=== PATIENT | female | born 1970 | race Two or more races ===

== ENCOUNTER 2018-07-23 17:53 | Inpatient (IN) | payer MEDICAID ==
[2018-07-23 19:12] LABS: % BASOPHILS 0.8 % (0.0-2.0); % LYMPHOCYTES 36.3 % (20.0-50.0); % MONOCYTES 3.9 % (2.0-10.0); HEMATOCRIT 41.9 % (41.0-60); LYMPHOCYTE ABSOLUTE 1.7 Th/cmm (1.5-3.0); MEAN CELL VOLUME 89.7 fl (81-100); MEAN CORPUSCULAR HEMOGLOBIN 30.1 pg (27.0-31.0); MEAN CORPUSCULAR HGB CONC 33.5 pg (28.0-36.0); MEAN PLATELET VOLUME 8.1 fl; MONOCYTE ABSOLUTE 0.2 Th/cmm (0.3-1.0); NEUTROPHILE ABSOLUTE 2.7 Th/cmm (1.8-8.0); PLATELET COUNT 138 Th/cmm (150-400); RED BLOOD COUNT 4.67 Mil/cmm (3.80-5.10); RED CELL DISTRIBUTION WIDTH 12.1 % (11.5-20.0); WHITE BLOOD COUNT 4.6 Th/cmm (4.8-10.8)
[2018-07-23 19:24] LABS: INR 1.06 (0.5-1.4)
[2018-07-23 19:29] LABS: TROP I 0.01 ng/mL (0.01-0.05)
[2018-07-23 19:32] LABS: ALB/GLOB RATIO 1.3 (1.0-1.8); ALKALINE PHOSPHATASE 125 U/L (34-104); ANION GAP 12.8 (7.0-16.0); BILIRUBIN,TOTAL 0.5 mg/dL (0.3-1.0); BUN - UREA NITROGEN 20 mg/dL (7-25); CALCIUM SERUM 9.7 mg/dL (8.6-10.3); CARBON DIOXIDE 27.2 mEq/L (21.0-31.0); CHLORIDE 103 mEq/L (98-107); CREATININE - SERUM 0.5 mg/dL (0.6-1.2); CREATININE KINASE 22 U/L (30-223); GFR AFRICAN-AMERICAN > 60.0 ml/min (>90); GFR NON AFRICAN-AMERICAN > 60.0 ml/min; GLUCOSE 95 mg/dL (70-105); SGOT 38 U/L (13-39); SGPT/ALT 40 U/L (7-52); SODIUM SERUM 139 mEq/L (136-145)
--- NOTE | 2018-07-23 21:59 | ED Physician Chart ---
ED Chief Complaint/HPI - Patient Information Date Seen:: 07/23/18 Time Seen:: 18:15 Chief Complaint:: G-Tube Dysfunction History of Present Illness:: onset x one day of G-Tube dysfunction; no report of LOC, ALOC, AMS, H/As, S/T, neck pain, cough, C/P, SOB, Abd. Pain, A/N/V/D/C, fever, chills, or urinary s/s Allergies:: Allergies Allergy/AdvReac Type Severity Reaction Status Date / Time No Known Allergies Allergy Verified 11/16/16 09:01 Vitals:: Vital Signs - 8 hr 07/23/18 07/23/18 18:14 21:51 Temp 97.3 F 97.0 F HR 75 82 RR 19 19 BP 106/45 127/55 O2 Sat % 96 98 Historian:: Patient, EMS Review:: Nurse's Note Reviewed, Old Chart Reviewed, EMS run form Reviewed ED Review of Systems - Review of Systems General/Constitutional: No fever, No chills, No weight loss, Weakness, No diaphoresis, No edema, No loss of appetite Skin: No skin lesions, No rash, No bruising Head: No headache, No light-headedness Eyes: No loss of vision, No pain, No diplopia ENT: No earache, No nasal drainage, No sore throat, No tinnitus Neck: No neck pain, No swelling, No thyromegaly, No stiffness, No mass noted Cardio Vascular: No chest pain, No palpitations, No PND, No orthopnea, No edema Pulmonary: No SOB, No cough, No sputum, No wheezing GI: No nausea, No vomiting, No diarrhea, No pain, No melena, No hematochezia, No constipation, No hematemesis G/U: No dysuria, No frequency, No hematuria, No nacturia Smudger: No vaginal discharge, No abnormal vaginal bleed, No contraction Musculoskeletal: No bone or joint pain, No back pain, No muscle pain Endocrine: No polyuria, No polydipsia Psychiatric: Prior psych history, No depression, Anxiety, No suicidal ideation, No homicidal ideation, No auditory hallucination, No visual hallucination Hematopoietic: No bruising, No lymphadenopathy Allergic/Immuno: No urticaria, No angioedema Neurological: No syncope, No focal symptoms, Weakness, No paresthesia, No headache, No seizure, No dizziness, Confusion, No vertigo ED Past Medical History - Past Medical History Obtainable: Yes Past Medical History: PUD/GERD, Seizures, Arthritis, Dementia, Other (Autism; Retts Syndrome) Family History: HTN Social History: Non Smoker, No Alcohol, No Drug Use, Single, Care Facility Surgical History: PEG/GTube Psychiatricy History: Schizophrenia, Bipolar, Dementia Medication: Reviewed Family Medical History - Family Member Mother History Unknown: Yes Ethnicity: Unknown Living Status: Unknown Hx Family Cancer: No ED Physical Exam - Physical Examination General/Constitutional: Awake, Well-developed, well-nourished, Alert, No distress, GCS 15, Non-toxic appearing, Ambulatory Head: Atraumatic Eyes: Lids, conjuctiva normal, PERRL, EOMI Skin: Nl inspection, No rash, No skin lesions, No ecchymosis, Well hydrated, No lymphadenopathy ENMT: External ears, nose nl, TM canals nl, Nasal exam nl, Lips, teeth, gums nl , Oropharynx nl, Tonsils nl Neck: Nontender, Full ROM w/o pain, No JVD, No nuchal rigidity, No bruit, No mass, No stridor Respiratory: Nl effort/Exclusion, Clear to Auscultation, No Wheeze/Rhonchi/Rales Cardio Vascular: RRR, No murmur, gallop, rubs, NL S1 S2, Carotid/Femoral/Distal pulses equal bilaterally GI: No tenderness/rebounding/guarding, No organomegaly, No hernia, Normal BS's, Nondistended, No mass/bruits, No McBurney tenderness, Rectum exam nl Other GI comments:: no pulsatile masses; + G-Tube Dysfunction : No CVA tenderness Extremities: No tenderness or effusion, Full ROM, normal strength in all extremities, No edema, Normal digits & nails Neuro/Psych: Alert/oriented, DTR's symmetric, Normal sensory exam, Normal motor strength, Judgement/insight normal, Mood normal, Normal gait, No focal deficits Misc: Normal back, No paraspinal tenderness ED Labs/Radiology/EKG Results - Lab Results Results: Laboratory Tests 07/23/18 07/23/18 07/23/18 18:52 18:52 18:52 WBC 4.6 L RBC 4.67 Hgb 14.0 Hct 41.9 MCV 89.7 MCH 30.1 MCHC Differential 33.5 RDW 12.1 Plt Count 138 L MPV 8.1 Neutrophils % 58.0 Lymphocytes % 36.3 Monocytes % 3.9 Eosinophils % 1.0 Basophils % 0.8 PT 11.0 INR 1.06 PTT (Actin FS) 30.3 Sodium 139 Potassium 4.0 Chloride 103 Carbon Dioxide 27.2 Anion Gap 12.8 BUN 20 Creatinine 0.5 L Est GFR ( Amer) > 60.0 Est GFR (Non-Af Amer) > 60.0 BUN/Creatinine Ratio 40.0 Glucose 95 Whole Bld Lactic Acid Calcium 9.7 Total Bilirubin 0.5 AST 38 ALT 40 Alkaline Phosphatase 125 H Creatine Kinase 22 L Troponin I Total Protein 7.0 Albumin 4.0 Globulin 3.0 Albumin/Globulin Ratio 1.3 07/23/18 18:52 WBC RBC Hgb Hct MCV MCH MCHC Differential RDW Plt Count MPV Neutrophils % Lymphocytes % Monocytes % Eosinophils % Basophils % PT INR PTT (Actin FS) Sodium Potassium Chloride Carbon Dioxide Anion Gap BUN Creatinine Est GFR ( Amer) Est GFR (Non-Af Amer) BUN/Creatinine Ratio Glucose Whole Bld Lactic Acid 1.30 Calcium Total Bilirubin AST ALT Alkaline Phosphatase Creatine Kinase Troponin I 0.01 Total Protein Albumin Globulin Albumin/Globulin Ratio Comments:: Reviewed - Radiology Results Comments:: NAD - EKG Interpretations EKG Time:: 19:18 Rate & Rhythm: 79; NSR Comments:: RAD; non-specific st-t changes ED Septic Shock - . Is Septic Shock (SBP<90, OR Lactate>4 mmol\L) present?: No - <6hrs of presentation: Vital Signs: Vital Signs - 8 hr 07/23/18 07/23/18 18:14 21:51 Temp 97.3 F 97.0 F HR 75 82 RR 19 19 BP 106/45 127/55 O2 Sat % 96 98 ED Reassessment (Disposition) - Reassessment Reassessment Condition:: Improved - Diagnosis Diagnosis:: G-Tube Dysfunction; Leukopenia; UTI; Sepsis - Aftercare/Follow up Instructions Aftercare/Follow-Up Instructions:: Counseled pt regarding lab results/diagnosis & need follow up, Counseled pt & family regarding lab results/diagnosis & need follow up - Patient Disposition Discharge/Transfer:: Acute Care w/in this hosp Accepting Physician:: Dr. Paredes Time Called:: 1999 Time Responded:: 20:00 Admitted to:: Med/Surg Spoke to:: Dr. Paredes Admitting Medical Physician:: Dr. Paredes Condition at Disposition:: Stable, Improved
[2018-07-23 22:04] LABS: URINE SOURCE MIDSTREAM
[2018-07-23 22:15] LABS: URINE BILIRUBIN NEGATIVE (NEGATIVE); URINE BLOOD NEGATIVE (NEGATIVE); URINE GLUCOSE (UA) NEGATIVE (NEGATIVE); URINE KETONE 15 mg/dL (NEGATIVE); URINE LEUKOCYTE ESTERASE SMALL (NEGATIVE); URINE MICROSCOPIC INDICATED? YES; URINE NITRATE POSITIVE (NEGATIVE); URINE PH 6.5 (4.6 - 8.0); URINE PROTEIN TRACE mg/dL (NEGATIVE)
[2018-07-23 22:16] LABS: URINE CLARITY HAZY (CLEAR); URINE COLOR YELLOW
[2018-07-23 22:20] LABS: URINE RBC 0-2 /hpf (0-5)
[2018-07-23 22:21] LABS: URINE BACTERIA MANY /hpf (NONE SEEN); URINE EPITHELIAL CELLS MODERATE /lpf (FEW)
[2018-07-23] MEDS ORDERED: cefTRIAXone 1 GM in Sodium Chloride 0.9% 50 ML IV ONE (22:28)
[2018-07-23] MEDS ORDERED: Albuterol Nebulizer 2.5mg/3mL HHN PRN (23:31)
[2018-07-24 04:49] VITALS: BP 109/74
[2018-07-24] MEDS: D5-0.9%NS 1,000 ML IV SCH ×2 (05:05→13:27)
[2018-07-24] MEDS: Lactulose 10 Gm/15 mL 30mL UDC GT SCH ×2 (08:26→11:26)
[2018-07-24] MEDS: Pantoprazole 40 mg/Packet GT SCH ×2 (08:26→11:26)
[2018-07-24] MEDS: Levetiracetam 500 mg/5mL 5mL UDSyr *for ORAL USE ONLY PO SCH ×3 (08:27→16:53)
[2018-07-24] MEDS ORDERED: Non-Formulary Item 1 EA (Levetiracetam [Keppra] 750 MG) GT SCH (09:00)
--- NOTE | 2018-07-24 10:07 | Diagnostic Imaging Report ---
Portable chest x-ray History: Pain Allowing for portable technique the heart size is normal. No focal pulmonary parenchymal processes. No hilar or mediastinal abnormalities. Impression: No acute abnormalities.
--- NOTE | 2018-07-24 11:08 | Diagnostic Imaging Report ---
CHEST X-RAY: AP view INDICATION: NG tube placement COMPARISON: Chest x-ray 07/23/2018 FINDINGS: NG tube is in place with tip in the distal stomach. Nonspecific gas-filled loops of bowel are noted. Bibasal atelectasis is noted. IMPRESSION: NG tube with tip in the distal stomach.
--- NOTE | 2018-07-24 15:27 | History & Physical ---
ADMIT DATE: 07/23/2018 INTERNAL MEDICINE HISTORY AND PHYSICAL CHIEF COMPLAINT: Malfunctioning G-tube, _unable to take meds, failed re insertment___. HISTORY OF PRESENT ILLNESS: This is a 47-year-old female with history of Rett syndrome, seizure, dysphagia, DJD, generalized contractures, G-tube secondary to dysphagia, admitted from nursing facility secondary to G-tube pulling out ____ and closed spontaneously. The patient was brought to the ER. The patient was also noted to be dehydrated with urinary tract infection and admitted for further management. PAST MEDICAL HISTORY: As mentioned in history of present illness. PAST SURGICAL HISTORY: Status post G-tube. MEDICATIONS: Calcium, Tylenol, Biotin, calcitonin, vitamin D3, Flaxseed, multivitamins, Keppra, Tylenol, baclofen, magnesium, gemfibrozil, lactulose, and sucralfate. ALLERGIES: No known drug allergies. SOCIAL HISTORY: The patient is a [facility] patient requiring 24-hour total care. FAMILY HISTORY: Noncontributory. REVIEW OF SYSTEMS: This is limited secondary to the patient's current mental state. We will try to obtain more detailed review of systems at a later date by talking to family members. We will also try to get information from nursing staff at [facility] [phone]. PHYSICAL EXAMINATION: VITAL SIGNS: Blood pressure is 127/54, respirations 18, and pulse is 70. GENERAL: The patient is a middle-aged female. She appears chronically ill with generalized contracture. LUNGS: Equal breath sounds, few rhonchi. HEART: Regular rate and rhythm without appreciable murmur. ABDOMEN: Soft, globular. ____ opening of the old G-tube site. EXTREMITIES: Positive excoriation. NEUROLOGIC: Limited. LABORATORY DATA: WBC is 4.6, hemoglobin is 14, and platelets 138. Sodium is 139, potassium is 4.0, BUN is 20, and creatinine is 0.5. UA showed 25 wbc's, many bacteria. ASSESSMENT: Urinary tract infection, malfunctioning G-tube, leukopenia, seizure, dysphagia, degenerative joint disease, generalized contractures, gastroesophageal reflux disease, and Rett's syndrome. PLAN: We will continue the patient on IV hydration, IV antibiotic. We will refer the patient to GI. We will follow the patient's urine culture and C and S. Continue antiepileptic medication. We will insert NG tube for medications. We will continue to monitor the patient closely. We will refer the patient to GI. JOB# [id number] MTDD
--- NOTE | 2018-07-24 15:32 | Internal Medicine Prog Note ---
Internal Medicine Subjective - Subjective Patient seen and examined:: with staff, chart reviewed Patient is:: asleep, non-verbal, non-interactive, in bed Per staff patient has:: no adverse event, no episodes of fall, agitated Internal Medicine Objective - Results Result Diagrams: 07/23/18 18:52 07/23/18 18:52 Recent Labs: Laboratory Last Values WBC 4.6 Th/cmm (4.8-10.8) L 07/23/18 18:52 RBC 4.67 Mil/cmm (3.80-5.10) 07/23/18 18:52 Hgb 14.0 gm/dL (12-16) 07/23/18 18:52 Hct 41.9 % (41.0-60) 07/23/18 18:52 MCV 89.7 fl (81-100) 07/23/18 18:52 MCH 30.1 pg (27.0-31.0) 07/23/18 18:52 MCHC Differential 33.5 pg (28.0-36.0) 07/23/18 18:52 RDW 12.1 % (11.5-20.0) 07/23/18 18:52 Plt Count 138 Th/cmm (150-400) L 07/23/18 18:52 MPV 8.1 fl 07/23/18 18:52 Neutrophils % 58.0 % (40.0-80.0) 07/23/18 18:52 Lymphocytes % 36.3 % (20.0-50.0) 07/23/18 18:52 Monocytes % 3.9 % (2.0-10.0) 07/23/18 18:52 Eosinophils % 1.0 % (0.0-5.0) 07/23/18 18:52 Basophils % 0.8 % (0.0-2.0) 07/23/18 18:52 PT 11.0 SECONDS (9.5-11.5) 07/23/18 18:52 INR 1.06 (0.5-1.4) 07/23/18 18:52 PTT (Actin FS) 30.3 SECONDS (26.0-38.0) 07/23/18 18:52 Sodium 139 mEq/L (136-145) 07/23/18 18:52 Potassium 4.0 mEq/L (3.5-5.1) 07/23/18 18:52 Chloride 103 mEq/L (98-107) 07/23/18 18:52 Carbon Dioxide 27.2 mEq/L (21.0-31.0) 07/23/18 18:52 Anion Gap 12.8 (7.0-16.0) 07/23/18 18:52 BUN 20 mg/dL (7-25) 07/23/18 18:52 Creatinine 0.5 mg/dL (0.6-1.2) L 07/23/18 18:52 Est GFR ( Amer) > 60.0 ml/min (>90) 07/23/18 18:52 Est GFR (Non-Af Amer) > 60.0 ml/min 07/23/18 18:52 BUN/Creatinine Ratio 40.0 07/23/18 18:52 Glucose 95 mg/dL (70-105) 07/23/18 18:52 Whole Bld Lactic Acid 1.30 mmol/L (0.60-1.99) 07/23/18 18:52 Calcium 9.7 mg/dL (8.6-10.3) 07/23/18 18:52 Total Bilirubin 0.5 mg/dL (0.3-1.0) 07/23/18 18:52 AST 38 U/L (13-39) 07/23/18 18:52 ALT 40 U/L (7-52) 07/23/18 18:52 Alkaline Phosphatase 125 U/L (34-104) H 07/23/18 18:52 Creatine Kinase 22 U/L (30-223) L 07/23/18 18:52 Troponin I 0.01 ng/mL (0.01-0.05) 07/23/18 18:52 Total Protein 7.0 gm/dL (6.0-8.3) 07/23/18 18:52 Albumin 4.0 gm/dL (3.7-5.3) 07/23/18 18:52 Globulin 3.0 gm/dL 07/23/18 18:52 Albumin/Globulin Ratio 1.3 (1.0-1.8) 07/23/18 18:52 Serum , Qual NEGATIVE (NEGATIVE) 07/23/18 18:52 Urine Source MIDSTREAM 07/23/18 21:50 Urine Color YELLOW 07/23/18 21:50 Urine Clarity HAZY (CLEAR) 07/23/18 21:50 Urine pH 6.5 (4.6 - 8.0) 07/23/18 21:50 Ur Specific [place] 1.020 (1.005-1.030) 07/23/18 21:50 Urine Protein TRACE mg/dL (NEGATIVE) 07/23/18 21:50 Urine Glucose (UA) NEGATIVE mg/dL (NEGATIVE) 07/23/18 21:50 Urine Ketones 15 mg/dL (NEGATIVE) H 07/23/18 21:50 Urine Blood NEGATIVE (NEGATIVE) 07/23/18 21:50 Urine Nitrate POSITIVE (NEGATIVE) H 07/23/18 21:50 Urine Bilirubin NEGATIVE (NEGATIVE) 07/23/18 21:50 Urine Urobilinogen 1.0 E.U./dL (0.2 - 1.0) 07/23/18 21:50 Ur Leukocyte Esterase SMALL (NEGATIVE) H 07/23/18 21:50 Urine RBC 0-2 /hpf (0-5) 07/23/18 21:50 Urine WBC 10-25 /hpf (0-5) H 07/23/18 21:50 Ur Epithelial Cells MODERATE /lpf (FEW) 07/23/18 21:50 Urine Bacteria MANY /hpf (NONE SEEN) H 07/23/18 21:50 - Physical Exam Vitals and I&O: Vital Signs Temp 97.1 F 07/24/18 11:27 Pulse 74 07/24/18 11:27 Resp 18 07/24/18 11:27 BP 120/69 07/24/18 11:27 Pulse Ox 98 07/24/18 11:27 Intake & Output 07/23/18 07/24/18 07/24/18 18:59 06:59 18:59 Intake Total 669.333 Balance 669.333 Weight (lbs) 72.575 kg 68.492 kg Intake: Intake, IV Amount 669.333 D5-0.9%Ns 1,000 ml @ 80 669.333 mls/hr IV .[id number] [facility] Rx #:[id number] Other: Weight Source Estimated Active Medications: Current Medications Acetaminophen (Tylenol) 650 mg GT Q4H PRN PRN Reason: Pain Stop: 09/21/18 23:30 Albuterol Sulfate (Albuterol 2.5mg/3ml Neb Ud) 2.5 mg HHN Q4H PRN PRN Reason: Shortness of Breath or Wheeze Stop: 09/21/18 23:30 Baclofen (Lioresal) 10 mg GT TID [facility] Stop: 09/22/18 08:59 Last Admin: 07/24/18 13:27 Dose: 10 mg Gemfibrozil (Lopid) 600 mg GT BID [facility] Stop: 09/22/18 08:59 Last Admin: 07/24/18 11:27 Dose: 600 mg Ceftriaxone Sodium 1 gm/ (Sodium Chloride) 50 mls @ 100 mls/hr IV Q24HR MARGA Stop: 09/22/18 20:59 Dextrose/Sodium Chloride (D5-0.9%Ns) 1,000 mls @ 80 mls/hr IV .[id number] [facility] Stop: 09/21/18 23:44 Last Admin: 07/24/18 13:27 Dose: 80 mls/hr Lactulose (Cephulac) 15 gm GT DAILY [facility] Stop: 09/22/18 08:59 Last Admin: 07/24/18 11:26 Dose: 15 gm Levetiracetam (Keppra) 750 mg PO BID MARGA Stop: 09/22/18 08:59 Last Admin: 07/24/18 11:27 Dose: 750 mg Lorazepam (Ativan) 1 mg IV Q4H PRN; Protocol PRN Reason: Seizure Stop: 09/21/18 23:33 Ondansetron HCl (Zofran) 4 mg IV Q8H PRN PRN Reason: Nausea / Vomiting Stop: 09/21/18 23:33 Pantoprazole Sodium (Protonix) 40 mg GT QDAC [facility] Stop: 09/22/18 07:29 Last Admin: 07/24/18 11:26 Dose: 40 mg Risperidone (Risperdal) 0.5 mg GT HS MARGA; Protocol Stop: 09/22/18 20:59 Sucralfate (Carafate) 1 gm GT TID [facility] Stop: 09/22/18 08:59 Last Admin: 07/24/18 13:27 Dose: 1 gm General: congested, demented HEENT: NC/AT, PERRLA, EOMI, thinning hair Neck: Supple, No JVD Lungs: congested, rales, ronchi Cardiovascular: RRR, Normal S1, Normal S2, without murmur Abdomen: soft, non-tender, globular, positive bowel sound Extremities: excoriation, contracture, deformity Neurological: no change, lethargic, disorganized, bedbound - Procedures Procedures: Procedures Procedure Code Date CHANGE GASTROSTOMY TUBE 59903 12/30/11 CLOSED ENDOSCOPIC BIOPSY OF LARGE INTESTINE 45.25 11/30/11 COLONOSCOPY AND BIOPSY 48378 11/30/11 EGD BIOPSY SINGLE/MULTIPLE 96369 11/30/[address] GASTROSTOMY TUBE 61980 09/26/11 EMERGENCY DEPT VISIT 59302 09/26/11 ESOPHAGOGASTRODUODENOSCOPY [EGD] W/CLOSED BIOPSY 45.16 11/30/11 HEMODIALYSIS 39.95 11/30/11 IMMUNIZATION ADMIN 39880 10/01/12 INCISION OF BREAST LESION 71933 09/23/10 INJECT/INFUSE NEC 99.29 11/14/12 INSERT INDWELLING CATH 57.94 10/01/12 INSERT NON-TUNNEL CV CATH 37409 11/30/11 INSERT TEMP BLADDER CATH 15015 10/01/12 MASTOTOMY 85.0 09/23/10 PERCUTANEOUS [ENDOSCOPIC] GASTROSTOMY [PEG] 43.11 09/26/11 REPLACE G/C TUBE PERC 23679 11/30/11 REPLACE GASTROSTOMY TUBE 97.02 12/30/11 VACCINATION NEC 99.55 10/01/12 VACCINE TOXOID 88252 10/01/12 VENOUS CATHETERIZATION FOR RENAL DIALYSIS 38.95 11/30/11 Internal Medicine Assmt/Plan - Assessment Assessment: uti malfx g tube leukopenia retts syndrome gen contractures - Plan Plan: cont on iv abx o2 brochodilator tx gi to replace gt for now ngt cpm dw rn
[2018-07-24] MEDS: cefTRIAXone 1 GM in Sodium Chloride 0.9% 50 ML IV SCH (21:35)
--- NOTE | 2018-07-24 22:47 | Consultation ---
DATE OF CONSULTATION: 07/24/2018 INPATIENT GASTROINTESTINAL CONSULT REFERRING PHYSICIAN: Dr. Paredes. REASON FOR CONSULTATION: Malfunctioning G-tube, dysphagia. HISTORY: This is a 47-year-old female from a facility, who is a poor historian, pulled out her feeding tube and they are asking us to replace it. PAST MEDICAL HISTORY: Dysphagia, seizure disorder, arthritis, Rett syndrome, hypertension, schizophrenia, bipolar. PAST SURGICAL HISTORY: PEG tube placement. FAMILY HISTORY: Noncontributory. SOCIAL HISTORY: No tobacco, alcohol, or IV drug usage. ALLERGIES: None. CURRENT MEDICATIONS: Tylenol, ceftriaxone, Lopid, lactulose, Keppra, Ativan, Zofran, Protonix, Risperdal, Carafate. REVIEW OF SYSTEMS: Unobtainable. PHYSICAL EXAMINATION: VITAL SIGNS: Temperature 97.1, breathing 18, pulse of 74, blood pressure 120/69, satting 98%. GENERAL: In no apparent distress. EYES: Anicteric. Normal conjunctivae. HEENT: Normocephalic, atraumatic. Moist mucous membranes. NECK: Soft, supple. CHEST: Clear. No effort. CARDIOVASCULAR: Regular rate and rhythm. ABDOMEN: Soft, nontender, nondistended with a previous G-tube site. SKIN: Warm, dry. EXTREMITIES: Reveal no cyanosis. LABORATORY DATA: Show hemoglobin of 14, platelets of 138. INR 1.06. IMPRESSION: A 47-year-old female with dysphagia, malfunctioning gastric tube apparently pulled out her feeding tube. They are asking us to replace it. PLAN: 1. PEG to be done. 2. INR was reviewed. 3. Continue antibiotics. Thank you for allowing me to participate. Please call me if any questions. JOB# [id number]
[2018-07-25] MEDS: D5-0.9%NS 1,000 ML IV SCH ×2 (04:05→21:01)
[2018-07-25 06:05] LABS: % BASOPHILS 0.1 % (0.0-2.0); % EOSINOPHILS 1.2 % (0.0-5.0); % LYMPHOCYTES 47.1 % (20.0-50.0); % MONOCYTES 5.3 % (2.0-10.0); % NEUTROPHILS 46.3 % (40.0-80.0); HEMATOCRIT 35.1 % (41.0-60); HEMOGLOBIN 12.3 gm/dL (12-16); LYMPHOCYTE ABSOLUTE 1.4 Th/cmm (1.5-3.0); MEAN CELL VOLUME 88.7 fl (81-100); MEAN CORPUSCULAR HEMOGLOBIN 30.9 pg (27.0-31.0); MEAN CORPUSCULAR HGB CONC 34.9 pg (28.0-36.0); MEAN PLATELET VOLUME 8.3 fl; MONOCYTE ABSOLUTE 0.2 Th/cmm (0.3-1.0); NEUTROPHILE ABSOLUTE 1.4 Th/cmm (1.8-8.0); PLATELET COUNT 112 Th/cmm (150-400); RED BLOOD COUNT 3.96 Mil/cmm (3.80-5.10)
[2018-07-25 06:12] LABS: INR 1.09 (0.5-1.4); PROTHROMBIN TIME (TEST) 11.3 SECONDS (9.5-11.5)
[2018-07-25 06:18] LABS: ANION GAP 9.1 (7.0-16.0); BUN - UREA NITROGEN 13 mg/dL (7-25); CALCIUM SERUM 8.8 mg/dL (8.6-10.3); CARBON DIOXIDE 25.3 mEq/L (21.0-31.0); CHLORIDE 112 mEq/L (98-107); CREATININE - SERUM 0.4 mg/dL (0.6-1.2); GFR AFRICAN-AMERICAN > 60.0 ml/min (>90); GFR NON AFRICAN-AMERICAN > 60.0 ml/min; GLUCOSE 122 mg/dL (70-105); POTASSIUM SERUM 3.4 mEq/L (3.5-5.1); SODIUM SERUM 143 mEq/L (136-145)
[2018-07-25] MEDS: Pantoprazole 40 mg/Packet GT SCH (08:18)
[2018-07-25] MEDS: Lactulose 10 Gm/15 mL 30mL UDC GT SCH (08:19)
[2018-07-25] MEDS: Levetiracetam 500 mg/5mL 5mL UDSyr *for ORAL USE ONLY PO SCH ×2 (08:19→16:52)
--- NOTE | 2018-07-25 08:34 | Diagnostic Imaging Report ---
Portable chest x-ray Time: 01 29 History: Preop Allowing for portable technique the heart size is normal. No focal pulmonary parenchymal processes. No hilar or mediastinal abnormalities. NG tube with tip in stomach. Impression: No acute abnormalities.
[2018-07-25] MEDS ORDERED: Lidocaine 2% Gel 5 mL TP ONE (10:10)
[2018-07-25] MEDS ORDERED: Lactated Ringer 1,000 ML IV ONE (10:10)
[2018-07-25] MEDS ORDERED: Propofol 10 mg/mL 20mL Vial **SURGERY USE ONLY IV ONE (10:10)
--- NOTE | 2018-07-25 13:22 | Internal Medicine Prog Note ---
Internal Medicine Subjective - Subjective Patient seen and examined:: with staff, chart reviewed Patient is:: asleep, non-verbal, non-interactive, in bed Per staff patient has:: no adverse event, no episodes of fall, agitated Internal Medicine Objective - Results Result Diagrams: 07/25/18 05:30 07/25/18 05:30 Recent Labs: Laboratory Last Values WBC 3.0 Th/cmm (4.8-10.8) L 07/25/18 05:30 RBC 3.96 Mil/cmm (3.80-5.10) 07/25/18 05:30 Hgb 12.3 gm/dL (12-16) 07/25/18 05:30 Hct 35.1 % (41.0-60) L 07/25/18 05:30 MCV 88.7 fl (81-100) 07/25/18 05:30 MCH 30.9 pg (27.0-31.0) 07/25/18 05:30 MCHC Differential 34.9 pg (28.0-36.0) 07/25/18 05:30 RDW 12.0 % (11.5-20.0) 07/25/18 05:30 Plt Count 112 Th/cmm (150-400) L 07/25/18 05:30 MPV 8.3 fl 07/25/18 05:30 Neutrophils % 46.3 % (40.0-80.0) 07/25/18 05:30 Lymphocytes % 47.1 % (20.0-50.0) 07/25/18 05:30 Monocytes % 5.3 % (2.0-10.0) 07/25/18 05:30 Eosinophils % 1.2 % (0.0-5.0) 07/25/18 05:30 Basophils % 0.1 % (0.0-2.0) 07/25/18 05:30 PT 11.3 SECONDS (9.5-11.5) 07/25/18 05:30 INR 1.09 (0.5-1.4) 07/25/18 05:30 PTT (Actin FS) 30.3 SECONDS (26.0-38.0) 07/23/18 18:52 Sodium 143 mEq/L (136-145) 07/25/18 05:30 Potassium 3.4 mEq/L (3.5-5.1) L 07/25/18 05:30 Chloride 112 mEq/L (98-107) H 07/25/18 05:30 Carbon Dioxide 25.3 mEq/L (21.0-31.0) 07/25/18 05:30 Anion Gap 9.1 (7.0-16.0) 07/25/18 05:30 BUN 13 mg/dL (7-25) 07/25/18 05:30 Creatinine 0.4 mg/dL (0.6-1.2) L 07/25/18 05:30 Est GFR ( Amer) > 60.0 ml/min (>90) 07/25/18 05:30 Est GFR (Non-Af Amer) > 60.0 ml/min 07/25/18 05:30 BUN/Creatinine Ratio 32.5 07/25/18 05:30 Glucose 122 mg/dL (70-105) H 07/25/18 05:30 Whole Bld Lactic Acid 1.30 mmol/L (0.60-1.99) 07/23/18 18:52 Calcium 8.8 mg/dL (8.6-10.3) 07/25/18 05:30 Total Bilirubin 0.5 mg/dL (0.3-1.0) 07/23/18 18:52 AST 38 U/L (13-39) 07/23/18 18:52 ALT 40 U/L (7-52) 07/23/18 18:52 Alkaline Phosphatase 125 U/L (34-104) H 07/23/18 18:52 Ammonia 59 umol/L (16-53) H 07/25/18 05:30 Creatine Kinase 22 U/L (30-223) L 07/23/18 18:52 Troponin I 0.01 ng/mL (0.01-0.05) 07/23/18 18:52 Total Protein 7.0 gm/dL (6.0-8.3) 07/23/18 18:52 Albumin 4.0 gm/dL (3.7-5.3) 07/23/18 18:52 Globulin 3.0 gm/dL 07/23/18 18:52 Albumin/Globulin Ratio 1.3 (1.0-1.8) 07/23/18 18:52 Serum , Qual NEGATIVE (NEGATIVE) 07/23/18 18:52 Urine Source MIDSTREAM 07/23/18 21:50 Urine Color YELLOW 07/23/18 21:50 Urine Clarity HAZY (CLEAR) 07/23/18 21:50 Urine pH 6.5 (4.6 - 8.0) 07/23/18 21:50 Ur Specific [place] 1.020 (1.005-1.030) 07/23/18 21:50 Urine Protein TRACE mg/dL (NEGATIVE) 07/23/18 21:50 Urine Glucose (UA) NEGATIVE mg/dL (NEGATIVE) 07/23/18 21:50 Urine Ketones 15 mg/dL (NEGATIVE) H 07/23/18 21:50 Urine Blood NEGATIVE (NEGATIVE) 07/23/18 21:50 Urine Nitrate POSITIVE (NEGATIVE) H 07/23/18 21:50 Urine Bilirubin NEGATIVE (NEGATIVE) 07/23/18 21:50 Urine Urobilinogen 1.0 E.U./dL (0.2 - 1.0) 07/23/18 21:50 Ur Leukocyte Esterase SMALL (NEGATIVE) H 07/23/18 21:50 Urine RBC 0-2 /hpf (0-5) 07/23/18 21:50 Urine WBC 10-25 /hpf (0-5) H 07/23/18 21:50 Ur Epithelial Cells MODERATE /lpf (FEW) 07/23/18 21:50 Urine Bacteria MANY /hpf (NONE SEEN) H 07/23/18 21:50 - Physical Exam Vitals and I&O: Vital Signs Temp 98.0 F 07/25/18 12:00 Pulse 64 07/25/18 12:00 Resp 18 07/25/18 12:00 BP 101/50 07/25/18 12:00 Pulse Ox 97 07/25/18 12:00 Intake & Output 07/24/18 07/25/18 07/25/18 18:59 06:59 18:59 Intake Total 247.053 5873 Balance 907.715 1658 Weight (lbs) 67.132 kg Intake: Intake, IV Amount 189.566 0397 D5-0.9%Ns 1,000 ml @ 80 910.867 9341 mls/hr IV .[id number] [facility] Rx #:[id number] Other: # Voids 5 # Bowel Movements 2 Weight Source Bedscale Active Medications: Current Medications Acetaminophen (Tylenol) 650 mg GT Q4H PRN PRN Reason: Pain Stop: 09/21/18 23:30 Albuterol Sulfate (Albuterol 2.5mg/3ml Neb Ud) 2.5 mg HHN Q4H PRN PRN Reason: Shortness of Breath or Wheeze Stop: 09/21/18 23:30 Baclofen (Lioresal) 10 mg GT TID [facility] Stop: 09/22/18 08:59 Last Admin: 07/25/18 08:18 Dose: Not Given Gemfibrozil (Lopid) 600 mg GT BID [facility] Stop: 09/22/18 08:59 Last Admin: 07/25/18 08:19 Dose: Not Given Ceftriaxone Sodium 1 gm/ (Sodium Chloride) 50 mls @ 100 mls/hr IV Q24HR [facility] Stop: 09/22/18 20:59 Last Admin: 07/24/18 21:35 Dose: 100 mls/hr Dextrose/Sodium Chloride (D5-0.9%Ns) 1,000 mls @ 80 mls/hr IV .[id number] [facility] Stop: 09/21/18 23:44 Last Admin: 07/25/18 04:05 Dose: 80 mls/hr Lactulose (Cephulac) 15 gm GT DAILY [facility] Stop: 09/22/18 08:59 Last Admin: 07/25/18 08:19 Dose: Not Given Levetiracetam (Keppra) 750 mg PO BID [facility] Stop: 09/22/18 08:59 Last Admin: 07/25/18 08:19 Dose: Not Given Lorazepam (Ativan) 1 mg IV Q4H PRN; Protocol PRN Reason: Seizure Stop: 09/21/18 23:33 Ondansetron HCl (Zofran) 4 mg IV Q8H PRN PRN Reason: Nausea / Vomiting Stop: 09/21/18 23:33 Pantoprazole Sodium (Protonix) 40 mg GT QDAC [facility] Stop: 09/22/18 07:29 Last Admin: 07/25/18 08:18 Dose: Not Given Potassium Chloride (Klor-Con) 20 meq PO X1 ONE Stop: 07/25/18 13:21 Risperidone (Risperdal) 0.5 mg GT HS [facility]; Protocol Stop: 09/22/18 20:59 Last Admin: 07/24/18 20:44 Dose: 0.5 mg Sucralfate (Carafate) 1 gm GT TID [facility] Stop: 09/22/18 08:59 Last Admin: 07/25/18 08:19 Dose: Not Given General: congested, demented HEENT: NC/AT, PERRLA, EOMI, thinning hair Neck: Supple, No JVD Lungs: congested, rales, ronchi Cardiovascular: RRR, Normal S1, Normal S2, without murmur Abdomen: soft, non-tender, globular, positive bowel sound Extremities: excoriation, contracture, deformity Neurological: no change, lethargic, disorganized, bedbound - Procedures Procedures: Procedures Procedure Code Date CHANGE GASTROSTOMY TUBE 45409 12/30/11 CLOSED ENDOSCOPIC BIOPSY OF LARGE INTESTINE 45.25 11/30/11 COLONOSCOPY AND BIOPSY 88039 11/30/11 EGD BIOPSY SINGLE/MULTIPLE 40434 11/30/[address] GASTROSTOMY TUBE 91816 09/26/11 EMERGENCY DEPT VISIT 40864 09/26/11 ESOPHAGOGASTRODUODENOSCOPY [EGD] W/CLOSED BIOPSY 45.16 11/30/11 HEMODIALYSIS 39.95 11/30/11 IMMUNIZATION ADMIN 63426 10/01/12 INCISION OF BREAST LESION 54129 09/23/10 INJECT/INFUSE NEC 99.29 11/14/12 INSERT INDWELLING CATH 57.94 10/01/12 INSERT NON-TUNNEL CV CATH 81886 11/30/11 INSERT TEMP BLADDER CATH 02063 10/01/12 MASTOTOMY 85.0 09/23/10 PERCUTANEOUS [ENDOSCOPIC] GASTROSTOMY [PEG] 43.11 09/26/11 REPLACE G/C TUBE PERC 02574 11/30/11 REPLACE GASTROSTOMY TUBE 97.02 12/30/11 VACCINATION NEC 99.55 10/01/12 VACCINE TOXOID 98399 10/01/12 VENOUS CATHETERIZATION FOR RENAL DIALYSIS 38.95 11/30/11 Internal Medicine Assmt/Plan - Assessment Assessment: uti malfx g tube leukopenia retts syndrome gen contractures - Plan Plan: cont on iv abx o2 brochodilator tx gi to replace gt for now ngt cpm dw rn Nutritional Asmnt/Malnutr-PDOC - Dietary Evaluation Malnutrition Findings (Please click <Entered> for more info): Nutritional Asmnt/Malnutrition Start: 07/24/18 17: 20 Text: Status: Complete Freq: Protocol: Document 07/24/18 17:20 [email or web address] (Rec: 07/24/18 17:37 THALIALIANE [email or web address]) Nutritional Asmnt/Malnutrition Patient General Information Nutritional Screening High Risk Diagnosis UTI, Gtube dislodged Pertinent Medical Hx/Surgical Hx PUD/GERD, seizures, arthritis, dementia, autism, retts syndrome, schizophrenia, bipolar Subjective Information Pt seen resting in bed at time of visit. Per nurse note, pt had NGT placed today. Current Diet Order/ Nutrition Support NPO Pertinent Medications D5-0.9%ns Pertinent Labs 07/23 Cr 0.5 Nutritional Hx/Data Height 1.68 m Height (Calculated Centimeters) 167.6 Current Weight (lbs) 68.492 kg Weight (Calculated Kilograms) 68.5 Weight (Calculated Grams) 39390.4 [place] Body Weight 130 Body Mass Index (BMI) 24.3 Weight Status Approriate GI Symptoms GI Symptoms None Last BM not indicated Usual diet at home per pt chart, two cak at 36ml/ hr x 14hr to provide 1008kcal Skin Integrity/Comment: bruise to right arm, rash to bilateral heels and abdomen precious score 14 Estimated Nutritional Goals BEE in Kcals: Using Current wt Calories/Kcals/Kg 23-27 Kcals Calculated 7132-4961 Protein: Using Current wt Protein g/k Protein Calculated 68 Fluid: ml 1587-1836ml (1ml/kcal) Nutritional Problem 1. Problem Problem in[place]aute intake from enteral feeding Etiology Gtube dislodged Signs/Symptoms: tube feeding not initiated at this time Malnutrition Alert Is there a minimum of two criteria No selected? Query Text:Check all the applicable criteria. A minimum of two criteria are recommended for diagnosis of either severe or non-severe malnutrition. Malnutrition Related to Morbid Obesity Malnutrition related to morbid obesity No Intervention/Recommendation Comments 1. Recommend to initated tube feeding with Two Avinash at 30ml/ hr x 18hr and advance by 10ml q6hr to goal rate of 45ml/hr x 18hr. It provides 810ml total volume, 1620kcal, 68g protein , 567ml free water, meeting 100% of nutritional needs. 2. Monitor TF rate, tolerance, wt, skin integrity and labs 3. F/U as high risk in 2-3 days, 07/26-07/27 Expected Outcomes/Goals Expected Outcomes/Goals 1. Pt to meet at least 90% of nutritional needs via nutrition support with tolerance 2. Wt stability, skin to remain intact, labs to approach WNL.
[2018-07-25] MEDS ORDERED: Potassium Chloride 20 mEq ER Tab PO ONE (14:00)
[2018-07-25] MEDS ORDERED: Probiotic Screen MC PRN (15:09)
--- NOTE | 2018-07-25 16:16 | Operative Report ---
DATE OF SURGERY: 07/25/2018 INPATIENT GASTROINTESTINAL PROCEDURE NAME OF PROCEDURE: PEG tube placement. REFERRING PHYSICIAN: Dr. Paredes. REASON FOR PROCEDURE: Malfunctioning G-tube, dysphagia. CONSENT: Risks, benefits, alternatives, nature, indication, possible outcomes were discussed. Mentioned bleeding, infection, perforation, , disability, cardiopulmonary distress and arrest, missed lesion and cancers, need for surgery, cellulitis, malfunction of feeding tube, patient pulling out the feeding tube. The patient's agreeing constitution party provided informed consent. PREOPERATIVE DIAGNOSIS: Malfunctioning G-tube and dysphagia. POSTOPERATIVE DIAGNOSIS: New PEG tube placed. MEDICATIONS: Provided by anesthesiologist. The patient is already on IV antibiotics. DESCRIPTION OF PROCEDURE: The patient was placed on her back. Upper endoscope advanced from the mouth and second portion of duodenum. Scope brought back in to stomach. Retroflexion view of fundus, cardia, lesser curvature, scope was then straightened. NG tube was removed. Stomach was insufflated with air, transillumination seen at the site of the original PEG tube site. Using a wire, we were able to pass it through the existing fistula directly into the stomach lumen. This was captured with a snare, pulled out through the oral end of the patient. PEG tube was attached to the oral end of the wire. No incision was necessary. The wire was then pulled into position pulling along with it the PEG tube. Gastroscope readvanced back in stomach where the bumper seen in satisfactory position. Scope was removed. COMPLICATIONS: None. FINDINGS: New PEG tube placed at the original site. RECOMMENDATIONS: 1. May use G-tube. 2. Check residual every 6 hours and hold if greater than 100 mL. 3. Abdominal binder to protect the G-tube. Thank you for allowing me to participate. Please call me if any questions. JOB# [id number]
[2018-07-25] MEDS: Lactobacillus Rhamnosus GG 15 Billion CFU CAP.SPRINK PO SCH (16:54)
[2018-07-25] MEDS: cefTRIAXone 1 GM in Sodium Chloride 0.9% 50 ML IV SCH (23:03)
[2018-07-26 06:57] LABS: % BASOPHILS 0.2 % (0.0-2.0); % EOSINOPHILS 1.6 % (0.0-5.0); % LYMPHOCYTES 48.3 % (20.0-50.0); % MONOCYTES 4.8 % (2.0-10.0); % NEUTROPHILS 45.1 % (40.0-80.0); HEMATOCRIT 36.3 % (41.0-60); HEMOGLOBIN 12.2 gm/dL (12-16); LYMPHOCYTE ABSOLUTE 1.4 Th/cmm (1.5-3.0); MEAN CELL VOLUME 90.9 fl (81-100); MEAN CORPUSCULAR HEMOGLOBIN 30.6 pg (27.0-31.0); MEAN CORPUSCULAR HGB CONC 33.6 pg (28.0-36.0); MEAN PLATELET VOLUME 8.5 fl; MONOCYTE ABSOLUTE 0.1 Th/cmm (0.3-1.0); NEUTROPHILE ABSOLUTE 1.2 Th/cmm (1.8-8.0); PLATELET COUNT 112 Th/cmm (150-400); RED BLOOD COUNT 3.99 Mil/cmm (3.80-5.10); RED CELL DISTRIBUTION WIDTH 11.9 % (11.5-20.0)
[2018-07-26 07:05] LABS: WHITE BLOOD COUNT 2.7 Th/cmm (4.8-10.8)
[2018-07-26 07:20] LABS: ANION GAP 12.3 (7.0-16.0); BUN - UREA NITROGEN 8 mg/dL (7-25); CARBON DIOXIDE 25.6 mEq/L (21.0-31.0); CHLORIDE 109 mEq/L (98-107); CREATININE - SERUM 0.5 mg/dL (0.6-1.2); GFR AFRICAN-AMERICAN > 60.0 ml/min (>90); GFR NON AFRICAN-AMERICAN > 60.0 ml/min; GLUCOSE 117 mg/dL (70-105); MAGNESIUM 1.9 mg/dL (1.9-2.7); POTASSIUM SERUM 3.9 mEq/L (3.5-5.1); SODIUM SERUM 143 mEq/L (136-145)
--- NOTE | 2018-07-26 07:45 | GI Progress Note ---
Subjective - Review of Systems Subjective: NO EVENTS Objective - Results Result Diagrams: 07/26/18 05:45 07/26/18 05:45 Recent Labs: Laboratory Last Values WBC 2.7 Th/cmm (4.8-10.8) L 07/26/18 05:45 RBC 3.99 Mil/cmm (3.80-5.10) 07/26/18 05:45 Hgb 12.2 gm/dL (12-16) 07/26/18 05:45 Hct 36.3 % (41.0-60) L 07/26/18 05:45 MCV 90.9 fl (81-100) 07/26/18 05:45 MCH 30.6 pg (27.0-31.0) 07/26/18 05:45 MCHC Differential 33.6 pg (28.0-36.0) 07/26/18 05:45 RDW 11.9 % (11.5-20.0) 07/26/18 05:45 Plt Count 112 Th/cmm (150-400) L 07/26/18 05:45 MPV 8.5 fl 07/26/18 05:45 Neutrophils % 45.1 % (40.0-80.0) 07/26/18 05:45 Lymphocytes % 48.3 % (20.0-50.0) 07/26/18 05:45 Monocytes % 4.8 % (2.0-10.0) 07/26/18 05:45 Eosinophils % 1.6 % (0.0-5.0) 07/26/18 05:45 Basophils % 0.2 % (0.0-2.0) 07/26/18 05:45 PT 11.3 SECONDS (9.5-11.5) 07/25/18 05:30 INR 1.09 (0.5-1.4) 07/25/18 05:30 PTT (Actin FS) 30.3 SECONDS (26.0-38.0) 07/23/18 18:52 Sodium 143 mEq/L (136-145) 07/26/18 05:45 Potassium 3.9 mEq/L (3.5-5.1) 07/26/18 05:45 Chloride 109 mEq/L (98-107) H 07/26/18 05:45 Carbon Dioxide 25.6 mEq/L (21.0-31.0) 07/26/18 05:45 Anion Gap 12.3 (7.0-16.0) 07/26/18 05:45 BUN 8 mg/dL (7-25) 07/26/18 05:45 Creatinine 0.5 mg/dL (0.6-1.2) L 07/26/18 05:45 Est GFR ( Amer) > 60.0 ml/min (>90) 07/26/18 05:45 Est GFR (Non-Af Amer) > 60.0 ml/min 07/26/18 05:45 BUN/Creatinine Ratio 16.0 07/26/18 05:45 Glucose 117 mg/dL (70-105) H 07/26/18 05:45 Whole Bld Lactic Acid 1.30 mmol/L (0.60-1.99) 07/23/18 18:52 Calcium 9.0 mg/dL (8.6-10.3) 07/26/18 05:45 Magnesium 1.9 mg/dL (1.9-2.7) 07/26/18 05:45 Total Bilirubin 0.5 mg/dL (0.3-1.0) 07/23/18 18:52 AST 38 U/L (13-39) 07/23/18 18:52 ALT 40 U/L (7-52) 07/23/18 18:52 Alkaline Phosphatase 125 U/L (34-104) H 07/23/18 18:52 Ammonia 59 umol/L (16-53) H 07/25/18 05:30 Creatine Kinase 22 U/L (30-223) L 07/23/18 18:52 Troponin I 0.01 ng/mL (0.01-0.05) 07/23/18 18:52 Total Protein 7.0 gm/dL (6.0-8.3) 07/23/18 18:52 Albumin 4.0 gm/dL (3.7-5.3) 07/23/18 18:52 Globulin 3.0 gm/dL 07/23/18 18:52 Albumin/Globulin Ratio 1.3 (1.0-1.8) 07/23/18 18:52 Serum , Qual NEGATIVE (NEGATIVE) 07/23/18 18:52 Urine Source MIDSTREAM 07/23/18 21:50 Urine Color YELLOW 07/23/18 21:50 Urine Clarity HAZY (CLEAR) 07/23/18 21:50 Urine pH 6.5 (4.6 - 8.0) 07/23/18 21:50 Ur Specific [place] 1.020 (1.005-1.030) 07/23/18 21:50 Urine Protein TRACE mg/dL (NEGATIVE) 07/23/18 21:50 Urine Glucose (UA) NEGATIVE mg/dL (NEGATIVE) 07/23/18 21:50 Urine Ketones 15 mg/dL (NEGATIVE) H 07/23/18 21:50 Urine Blood NEGATIVE (NEGATIVE) 07/23/18 21:50 Urine Nitrate POSITIVE (NEGATIVE) H 07/23/18 21:50 Urine Bilirubin NEGATIVE (NEGATIVE) 07/23/18 21:50 Urine Urobilinogen 1.0 E.U./dL (0.2 - 1.0) 07/23/18 21:50 Ur Leukocyte Esterase SMALL (NEGATIVE) H 07/23/18 21:50 Urine RBC 0-2 /hpf (0-5) 07/23/18 21:50 Urine WBC 10-25 /hpf (0-5) H 07/23/18 21:50 Ur Epithelial Cells MODERATE /lpf (FEW) 07/23/18 21:50 Urine Bacteria MANY /hpf (NONE SEEN) H 07/23/18 21:50 - Physical Exam Vitals and I&O: Vital Signs Temp 97.7 F 07/26/18 04:00 Pulse 65 07/26/18 04:00 Resp 19 07/26/18 04:00 BP 129/58 07/26/18 04:00 Pulse Ox 94 07/26/18 04:00 Intake & Output 07/25/18 07/26/18 07/26/18 18:59 06:59 18:59 Intake Total 1200 Balance 1200 Weight (lbs) 67.041 kg 68.492 kg Intake: Intake, IV Amount 1000 D5-0.9%Ns 1,000 ml @ 80 1000 mls/hr IV .[id number] [facility] Rx #:[id number] Tube Feeding 120 Other 80 Other: # Voids 2 Weight Source Bedscale Bedscale Active Medications: Current Medications Acetaminophen (Tylenol) 650 mg GT Q4H PRN PRN Reason: Pain Stop: 09/21/18 23:30 Albuterol Sulfate (Albuterol 2.5mg/3ml Neb Ud) 2.5 mg HHN Q4H PRN PRN Reason: Shortness of Breath or Wheeze Stop: 09/21/18 23:30 Baclofen (Lioresal) 10 mg GT TID [facility] Stop: 09/22/18 08:59 Last Admin: 07/25/18 20:54 Dose: 10 mg Gemfibrozil (Lopid) 600 mg GT BID [facility] Stop: 09/22/18 08:59 Last Admin: 07/25/18 16:52 Dose: 600 mg Ceftriaxone Sodium 1 gm/ (Sodium Chloride) 50 mls @ 100 mls/hr IV Q24HR [facility] Stop: 09/22/18 20:59 Last Admin: 07/25/18 23:03 Dose: 100 mls/hr Dextrose/Sodium Chloride (D5-0.9%Ns) 1,000 mls @ 80 mls/hr IV .[id number] [facility] Stop: 09/21/18 23:44 Last Admin: 07/25/18 21:01 Dose: 80 mls/hr Lactobacillus Rhamnosus (Culturelle 15b) 1 each PO DAILY [facility] Stop: 09/23/18 15:59 Last Admin: 07/25/18 16:54 Dose: 1 each Lactulose (Cephulac) 15 gm GT DAILY [facility] Stop: 09/22/18 08:59 Last Admin: 07/25/18 08:19 Dose: Not Given Levetiracetam (Keppra) 750 mg PO BID [facility] Stop: 09/22/18 08:59 Last Admin: 07/25/18 16:52 Dose: 750 mg Lorazepam (Ativan) 1 mg IV Q4H PRN; Protocol PRN Reason: Seizure Stop: 09/21/18 23:33 Miscellaneous (Probiotic Screen) 1 ea MC PRN PRN PRN Reason: PROTOCOL Stop: 09/23/18 15:08 Ondansetron HCl (Zofran) 4 mg IV Q8H PRN PRN Reason: Nausea / Vomiting Stop: 09/21/18 23:33 Pantoprazole Sodium (Protonix) 40 mg GT QDAC [facility] Stop: 09/22/18 07:29 Last Admin: 07/25/18 08:18 Dose: Not Given Risperidone (Risperdal) 0.5 mg GT HS [facility]; Protocol Stop: 09/22/18 20:59 Last Admin: 07/25/18 20:54 Dose: 0.5 mg Sucralfate (Carafate) 1 gm GT TID [facility] Stop: 09/22/18 08:59 Last Admin: 07/25/18 20:54 Dose: 1 gm - Procedures Procedures: Procedures Procedure Code Date CHANGE GASTROSTOMY TUBE 55030 12/30/11 CLOSED ENDOSCOPIC BIOPSY OF LARGE INTESTINE 45.25 11/30/11 COLONOSCOPY AND BIOPSY 01806 11/30/11 EGD BIOPSY SINGLE/MULTIPLE 77268 11/30/[address] GASTROSTOMY TUBE 97755 09/26/11 EMERGENCY DEPT VISIT 54353 09/26/11 ESOPHAGOGASTRODUODENOSCOPY [EGD] W/CLOSED BIOPSY 45.16 11/30/11 HEMODIALYSIS 39.95 11/30/11 IMMUNIZATION ADMIN 80266 10/01/12 INCISION OF BREAST LESION 21498 09/23/10 INJECT/INFUSE NEC 99.29 11/14/12 INSERT INDWELLING CATH 57.94 10/01/12 INSERT NON-TUNNEL CV CATH 25105 11/30/11 INSERT TEMP BLADDER CATH 40131 10/01/12 MASTOTOMY 85.0 09/23/10 PERCUTANEOUS [ENDOSCOPIC] GASTROSTOMY [PEG] 43.11 09/26/11 REPLACE G/C TUBE PERC 76575 11/30/11 REPLACE GASTROSTOMY TUBE 97.02 12/30/11 VACCINATION NEC 99.55 10/01/12 VACCINE TOXOID 06722 10/01/12 VENOUS CATHETERIZATION FOR RENAL DIALYSIS 38.95 11/30/11 Assessment/Plan - Problem List Patient Problems: All Active Problems DISLODGED GASTRIC FEEDING TUBE (Acute) - Assessment Assessment: 47 YO FEMALE WITH MALFUNCTION G TUBE AND DYSPHAGIA NEW PEG PLACED AT ORIGINAL SITE ARA TUBE FEEDS 1.CONT TUBE FEEDS 2.KEEP ABD BINDER TO PROTECT GT 3.CONT SUPP CARE 4.WILL SEE NEEDED; CALL IF QUESTIONS
[2018-07-26] MEDS: Lactobacillus Rhamnosus GG 15 Billion CFU CAP.SPRINK PO SCH (08:55)
[2018-07-26] MEDS: Lactulose 10 Gm/15 mL 30mL UDC GT SCH (08:56)
[2018-07-26] MEDS: Levetiracetam 500 mg/5mL 5mL UDSyr *for ORAL USE ONLY PO SCH ×2 (08:56→17:53)
[2018-07-26] MEDS: Pantoprazole 40 mg/Packet GT SCH (08:56)
--- NOTE | 2018-07-26 11:05 | Internal Medicine Prog Note ---
Internal Medicine Subjective - Subjective Service Date: 07/26/18 Patient is:: asleep, non-verbal, non-interactive, in bed Per staff patient has:: no adverse event, no episodes of fall, agitated Internal Medicine Objective - Results Result Diagrams: 07/26/18 05:45 07/26/18 05:45 Recent Labs: Laboratory Last Values WBC 2.7 Th/cmm (4.8-10.8) L 07/26/18 05:45 RBC 3.99 Mil/cmm (3.80-5.10) 07/26/18 05:45 Hgb 12.2 gm/dL (12-16) 07/26/18 05:45 Hct 36.3 % (41.0-60) L 07/26/18 05:45 MCV 90.9 fl (81-100) 07/26/18 05:45 MCH 30.6 pg (27.0-31.0) 07/26/18 05:45 MCHC Differential 33.6 pg (28.0-36.0) 07/26/18 05:45 RDW 11.9 % (11.5-20.0) 07/26/18 05:45 Plt Count 112 Th/cmm (150-400) L 07/26/18 05:45 MPV 8.5 fl 07/26/18 05:45 Neutrophils % 45.1 % (40.0-80.0) 07/26/18 05:45 Lymphocytes % 48.3 % (20.0-50.0) 07/26/18 05:45 Monocytes % 4.8 % (2.0-10.0) 07/26/18 05:45 Eosinophils % 1.6 % (0.0-5.0) 07/26/18 05:45 Basophils % 0.2 % (0.0-2.0) 07/26/18 05:45 PT 11.3 SECONDS (9.5-11.5) 07/25/18 05:30 INR 1.09 (0.5-1.4) 07/25/18 05:30 PTT (Actin FS) 30.3 SECONDS (26.0-38.0) 07/23/18 18:52 Sodium 143 mEq/L (136-145) 07/26/18 05:45 Potassium 3.9 mEq/L (3.5-5.1) 07/26/18 05:45 Chloride 109 mEq/L (98-107) H 07/26/18 05:45 Carbon Dioxide 25.6 mEq/L (21.0-31.0) 07/26/18 05:45 Anion Gap 12.3 (7.0-16.0) 07/26/18 05:45 BUN 8 mg/dL (7-25) 07/26/18 05:45 Creatinine 0.5 mg/dL (0.6-1.2) L 07/26/18 05:45 Est GFR ( Amer) > 60.0 ml/min (>90) 07/26/18 05:45 Est GFR (Non-Af Amer) > 60.0 ml/min 07/26/18 05:45 BUN/Creatinine Ratio 16.0 07/26/18 05:45 Glucose 117 mg/dL (70-105) H 07/26/18 05:45 Whole Bld Lactic Acid 1.30 mmol/L (0.60-1.99) 07/23/18 18:52 Calcium 9.0 mg/dL (8.6-10.3) 07/26/18 05:45 Magnesium 1.9 mg/dL (1.9-2.7) 07/26/18 05:45 Total Bilirubin 0.5 mg/dL (0.3-1.0) 07/23/18 18:52 AST 38 U/L (13-39) 07/23/18 18:52 ALT 40 U/L (7-52) 07/23/18 18:52 Alkaline Phosphatase 125 U/L (34-104) H 07/23/18 18:52 Ammonia 59 umol/L (16-53) H 07/25/18 05:30 Creatine Kinase 22 U/L (30-223) L 07/23/18 18:52 Troponin I 0.01 ng/mL (0.01-0.05) 07/23/18 18:52 Total Protein 7.0 gm/dL (6.0-8.3) 07/23/18 18:52 Albumin 4.0 gm/dL (3.7-5.3) 07/23/18 18:52 Globulin 3.0 gm/dL 07/23/18 18:52 Albumin/Globulin Ratio 1.3 (1.0-1.8) 07/23/18 18:52 Serum , Qual NEGATIVE (NEGATIVE) 07/23/18 18:52 Urine Source MIDSTREAM 07/23/18 21:50 Urine Color YELLOW 07/23/18 21:50 Urine Clarity HAZY (CLEAR) 07/23/18 21:50 Urine pH 6.5 (4.6 - 8.0) 07/23/18 21:50 Ur Specific [place] 1.020 (1.005-1.030) 07/23/18 21:50 Urine Protein TRACE mg/dL (NEGATIVE) 07/23/18 21:50 Urine Glucose (UA) NEGATIVE mg/dL (NEGATIVE) 07/23/18 21:50 Urine Ketones 15 mg/dL (NEGATIVE) H 07/23/18 21:50 Urine Blood NEGATIVE (NEGATIVE) 07/23/18 21:50 Urine Nitrate POSITIVE (NEGATIVE) H 07/23/18 21:50 Urine Bilirubin NEGATIVE (NEGATIVE) 07/23/18 21:50 Urine Urobilinogen 1.0 E.U./dL (0.2 - 1.0) 07/23/18 21:50 Ur Leukocyte Esterase SMALL (NEGATIVE) H 07/23/18 21:50 Urine RBC 0-2 /hpf (0-5) 07/23/18 21:50 Urine WBC 10-25 /hpf (0-5) H 07/23/18 21:50 Ur Epithelial Cells MODERATE /lpf (FEW) 07/23/18 21:50 Urine Bacteria MANY /hpf (NONE SEEN) H 07/23/18 21:50 - Physical Exam Vitals and I&O: Vital Signs Temp 97.9 F 07/26/18 07:52 Pulse 60 07/26/18 07:52 Resp 18 07/26/18 07:52 BP 102/51 07/26/18 07:52 Pulse Ox 96 07/26/18 07:52 Intake & Output 07/25/18 07/26/18 07/26/18 18:59 06:59 18:59 Intake Total 1200 Balance 1200 Weight (lbs) 147 lb 12.8 oz 151 lb Intake: Intake, IV Amount 1000 D5-0.9%Ns 1,000 ml @ 80 1000 mls/hr IV .[id number] [facility] Rx #:[id number] Tube Feeding 120 Other 80 Other: # Voids 2 Weight Source Bedscale Bedscale Active Medications: Current Medications Acetaminophen (Tylenol) 650 mg GT Q4H PRN PRN Reason: Pain Stop: 09/21/18 23:30 Albuterol Sulfate (Albuterol 2.5mg/3ml Neb Ud) 2.5 mg HHN Q4H PRN PRN Reason: Shortness of Breath or Wheeze Stop: 09/21/18 23:30 Baclofen (Lioresal) 10 mg GT TID [facility] Stop: 09/22/18 08:59 Last Admin: 07/26/18 08:55 Dose: 10 mg Gemfibrozil (Lopid) 600 mg GT BID [facility] Stop: 09/22/18 08:59 Last Admin: 07/26/18 08:55 Dose: 600 mg Ceftriaxone Sodium 1 gm/ (Sodium Chloride) 50 mls @ 100 mls/hr IV Q24HR [facility] Stop: 09/22/18 20:59 Last Admin: 07/25/18 23:03 Dose: 100 mls/hr Dextrose/Sodium Chloride (D5-0.9%Ns) 1,000 mls @ 80 mls/hr IV .[id number] [facility] Stop: 09/21/18 23:44 Last Admin: 07/25/18 21:01 Dose: 80 mls/hr Lactobacillus Rhamnosus (Culturelle 15b) 1 each PO DAILY [facility] Stop: 09/23/18 15:59 Last Admin: 07/26/18 08:55 Dose: 1 each Lactulose (Cephulac) 15 gm GT DAILY [facility] Stop: 09/22/18 08:59 Last Admin: 07/26/18 08:56 Dose: 15 gm Levetiracetam (Keppra) 750 mg PO BID [facility] Stop: 09/22/18 08:59 Last Admin: 07/26/18 08:56 Dose: 750 mg Lorazepam (Ativan) 1 mg IV Q4H PRN; Protocol PRN Reason: Seizure Stop: 09/21/18 23:33 Miscellaneous (Probiotic Screen) 1 ea MC PRN PRN PRN Reason: PROTOCOL Stop: 09/23/18 15:08 Ondansetron HCl (Zofran) 4 mg IV Q8H PRN PRN Reason: Nausea / Vomiting Stop: 09/21/18 23:33 Pantoprazole Sodium (Protonix) 40 mg GT QDAC [facility] Stop: 09/22/18 07:29 Last Admin: 07/26/18 08:56 Dose: 40 mg Risperidone (Risperdal) 0.5 mg GT HS [facility]; Protocol Stop: 09/22/18 20:59 Last Admin: 07/25/18 20:54 Dose: 0.5 mg Sucralfate (Carafate) 1 gm GT TID [facility] Stop: 09/22/18 08:59 Last Admin: 07/26/18 08:56 Dose: 1 gm General: congested, demented HEENT: NC/AT, PERRLA, EOMI, thinning hair Neck: Supple, No JVD Lungs: congested, rales, ronchi Cardiovascular: RRR, Normal S1, Normal S2, without murmur Abdomen: soft, non-tender, globular, positive bowel sound Extremities: excoriation, contracture, deformity Neurological: no change, lethargic, disorganized, bedbound - Procedures Procedures: Procedures Procedure Code Date CHANGE GASTROSTOMY TUBE 26855 12/30/11 CLOSED ENDOSCOPIC BIOPSY OF LARGE INTESTINE 45.25 11/30/11 COLONOSCOPY AND BIOPSY 57122 11/30/11 EGD BIOPSY SINGLE/MULTIPLE 24321 11/30/[address] GASTROSTOMY TUBE 65811 09/26/11 EMERGENCY DEPT VISIT 05590 09/26/11 ESOPHAGOGASTRODUODENOSCOPY [EGD] W/CLOSED BIOPSY 45.16 11/30/11 HEMODIALYSIS 39.95 11/30/11 IMMUNIZATION ADMIN 46097 10/01/12 INCISION OF BREAST LESION 59735 09/23/10 INJECT/INFUSE NEC 99.29 11/14/12 INSERT INDWELLING CATH 57.94 10/01/12 INSERT NON-TUNNEL CV CATH 79011 11/30/11 INSERT TEMP BLADDER CATH 92299 10/01/12 MASTOTOMY 85.0 09/23/10 PERCUTANEOUS [ENDOSCOPIC] GASTROSTOMY [PEG] 43.11 09/26/11 REPLACE G/C TUBE PERC 83744 11/30/11 REPLACE GASTROSTOMY TUBE 97.02 12/30/11 VACCINATION NEC 99.55 10/01/12 VACCINE TOXOID 06410 10/01/12 VENOUS CATHETERIZATION FOR RENAL DIALYSIS 38.95 11/30/11 Internal Medicine Assmt/Plan - Assessment Assessment: uti malfx g tube leukopenia retts syndrome gen contractures - Plan Plan: continue ivabx follow up labs in am rom with nursing staff cont current plan of care Nutritional Asmnt/Malnutr-PDOC - Dietary Evaluation Malnutrition Findings (Please click <Entered> for more info): Nutritional Asmnt/Malnutrition Start: 07/24/18 17: 20 Text: Status: Complete Freq: Protocol: Document 07/24/18 17:20 THALIALIANE (Rec: 07/24/18 17:37 NORM [email or web address]) Nutritional Asmnt/Malnutrition Patient General Information Nutritional Screening High Risk Diagnosis UTI, Gtube dislodged Pertinent Medical Hx/Surgical Hx PUD/GERD, seizures, arthritis, dementia, autism, retts syndrome, schizophrenia, bipolar Subjective Information Pt seen resting in bed at time of visit. Per nurse note, pt had NGT placed today. Current Diet Order/ Nutrition Support NPO Pertinent Medications D5-0.9%ns Pertinent Labs 07/23 Cr 0.5 Nutritional Hx/Data Height 5 ft 6 in Height (Calculated Centimeters) 167.6 Current Weight (lbs) 151 lb Weight (Calculated Kilograms) 68.5 Weight (Calculated Grams) 98159.4 [place] Body Weight 130 Body Mass Index (BMI) 24.3 Weight Status Approriate GI Symptoms GI Symptoms None Last BM not indicated Usual diet at home per pt chart, two cak at 36ml/ hr x 14hr to provide 1008kcal Skin Integrity/Comment: bruise to right arm, rash to bilateral heels and abdomen precious score 14 Estimated Nutritional Goals BEE in Kcals: Using Current wt Calories/Kcals/Kg 23-27 Kcals Calculated 0860-3844 Protein: Using Current wt Protein g/k Protein Calculated 68 Fluid: ml 1587-1836ml (1ml/kcal) Nutritional Problem 1. Problem Problem inadeaute intake from enteral feeding Etiology Gtube dislodged Signs/Symptoms: tube feeding not initiated at this time Malnutrition Alert Is there a minimum of two criteria No selected? Query Text:Check all the applicable criteria. A minimum of two criteria are recommended for diagnosis of either severe or non-severe malnutrition. Malnutrition Related to Morbid Obesity Malnutrition related to morbid obesity No Intervention/Recommendation Comments 1. Recommend to initated tube feeding with Two Avinash at 30ml/ hr x 18hr and advance by 10ml q6hr to goal rate of 45ml/hr x 18hr. It provides 810ml total volume, 1620kcal, 68g protein , 567ml free water, meeting 100% of nutritional needs. 2. Monitor TF rate, tolerance, wt, skin integrity and labs 3. F/U as high risk in 2-3 days, 07/26-07/27 Expected Outcomes/Goals Expected Outcomes/Goals 1. Pt to meet at least 90% of nutritional needs via nutrition support with tolerance 2. Wt stability, skin to remain intact, labs to approach WNL.
[2018-07-26] MEDS: D5-0.9%NS 1,000 ML IV SCH (11:55)
[2018-07-26 12:08] LABS: FOLIC ACID >20.0 ng/mL (>3.0)
== END 2018-07-26 20:11 | DRG 252 ==
LOC: ER 17:53 → MSI 23:30
PROVIDERS: ADMIT Internal Medicine; ATTEND Internal Medicine
PROC: 0D20XUZ Change Feeding Device in Upper Intestinal Tract, External Approach (ICD-10-PCS; principal; 2018-07-25)
DX: K94.23 Gastrostomy malfunction (principal); A41.9 Sepsis, unspecified organism; F84.2 Rett's syndrome; R13.10 Dysphagia, unspecified; F03.90 Unspecified dementia, unspecified severity, without behavioral disturbance, psychotic disturbance, mood disturbance, and anxiety; Z66 Do not resuscitate; K21.9 Gastro-esophageal reflux disease without esophagitis; M19.90 Unspecified osteoarthritis, unspecified site; N39.0 Urinary tract infection, site not specified; E86.0 Dehydration; G40.909 Epilepsy, unspecified, not intractable, without status epilepticus; Y83.8 Other surgical procedures as the cause of abnormal reaction of the patient, or of later complication, without mention of misadventure at the time of the procedure; Y92.89 Other specified places as the place of occurrence of the external cause; Z82.49 Family history of ischemic heart disease and other diseases of the circulatory system
CPT/HCPCS: 36415-UA; 71045-TC; 80048-TC; 80053-TC; 81001-TC; 82140-TC; 82550-TC; 82607-90; 82746-90; 83605; 83735-TC; 84484-TC; 84703-TC; 85025-TC; 85610-TC; 85730-TC; 87086-90; 93005; 94760; J0696; J2704; J7042; Z7506; Z7610

== ENCOUNTER 2019-02-24 11:03 | Inpatient (IN) | payer MEDICAID ==
[2019-02-24] MEDS ORDERED: Sodium Chloride 0.9% 1,000 ML IV ONE (11:31)
[2019-02-24 11:56] LABS: EOSINOPHILE ABSOLUTE 0.1 Th/cmm (0.1-0.4); LYMPHOCYTE ABSOLUTE 1.4 Th/cmm (1.5-3.0); MEAN CORPUSCULAR HEMOGLOBIN 30.4 pg (27.0-31.0)
[2019-02-24 12:00] LABS: % BASOPHILS 0.8 % (0.0-2.0); % EOSINOPHILS 2.2 % (0.0-5.0); % LYMPHOCYTES 43.3 % (20.0-50.0); % MONOCYTES 4.6 % (2.0-10.0); % NEUTROPHILS 49.1 % (40.0-80.0); HEMATOCRIT 41.5 % (41.0-60); MEAN CELL VOLUME 89.9 fl (81-100); MEAN CORPUSCULAR HGB CONC 33.8 pg (28.0-36.0); MONOCYTE ABSOLUTE 0.1 Th/cmm (0.3-1.0); NEUTROPHILE ABSOLUTE 1.6 Th/cmm (1.8-8.0); PLATELET COUNT 166 Th/cmm (150-400); RED BLOOD COUNT 4.61 Mil/cmm (3.80-5.10); RED CELL DISTRIBUTION WIDTH 11.6 % (11.5-20.0)
[2019-02-24 12:04] LABS: WHITE BLOOD COUNT 3.2 Th/cmm (4.8-10.8)
[2019-02-24 12:08] LABS: INR 1.08 (0.5-1.4)
[2019-02-24 12:13] LABS: ALB/GLOB RATIO 1.2 (1.0-1.8); ALBUMIN 3.8 gm/dL (3.7-5.3); ALKALINE PHOSPHATASE 131 U/L (34-104); AMYLASE SERUM 36 U/L (29-103); BILIRUBIN,TOTAL 0.4 mg/dL (0.3-1.0); BUN - UREA NITROGEN 9 mg/dL (7-25); CALCIUM SERUM 9.5 mg/dL (8.6-10.3); CARBON DIOXIDE 25.8 mEq/L (21.0-31.0); CHLORIDE 103 mEq/L (98-107); CREATININE - SERUM 0.5 mg/dL (0.6-1.2); CREATININE KINASE 60 U/L (30-223); GFR AFRICAN-AMERICAN > 60.0 ml/min (>90); GFR NON AFRICAN-AMERICAN > 60.0 ml/min; GLUCOSE 116 mg/dL (70-105); LIPASE 35 U/L (11-82); POTASSIUM SERUM 3.8 mEq/L (3.5-5.1); SGOT 31 U/L (13-39); SGPT/ALT 27 U/L (7-52); SODIUM SERUM 135 mEq/L (136-145); TOTAL PROTEIN,SERUM 6.9 gm/dL (6.0-8.3)
[2019-02-24] MEDS ORDERED: Albuterol Nebulizer 2.5mg/3mL HHN PRN ×2 (12:41→12:42)
[2019-02-24] MEDS ORDERED: Magnesium Hydroxide (MOM) 30 mL UDC PO PRN (12:41)
[2019-02-24] MEDS ORDERED: Menthol/Zinc Oxide Oint 113gm Tube TP PRN (12:41)
[2019-02-24] MEDS ORDERED: LOPERAMIDE HCL PO PRN (12:41)
[2019-02-24] MEDS ORDERED: Ipratropium Neb 0.5 mg/2.5 mL UD IH PRN (12:42)
--- NOTE | 2019-02-24 14:32 | ED Physician Chart ---
ED Chief Complaint/HPI - Patient Information Date Seen:: 02/24/19 Time Seen:: 11:15 Chief Complaint:: G-Tube Dysfunction History of Present Illness:: onset x one day of G-Tube dysfunction; no report of trauma, H/As, neck pain, C/P , SOB, Abd. Pain, A/N/V/D/C, fever, chills, or urinary s/s Allergies:: Allergies Allergy/AdvReac Type Severity Reaction Status Date / Time No Known Allergies Allergy Verified 11/16/16 09:01 Vitals:: Vital Signs - 8 hr 02/24/19 11:15 Temp 97.7 F HR 61 RR 17 BP 104/54 O2 Sat % 99 Historian:: Patient, EMS Review:: Nurse's Note Reviewed, Old Chart Reviewed, EMS run form Reviewed ED Review of Systems - Review of Systems General/Constitutional: No fever, No chills, No weight loss, No weakness, No diaphoresis, No edema, No loss of appetite Skin: No skin lesions, No rash, No bruising Head: No headache, No light-headedness Eyes: No loss of vision, No pain, No diplopia ENT: No earache, No nasal drainage, No sore throat, No tinnitus Neck: No neck pain, No swelling, No thyromegaly, No stiffness, No mass noted Cardio Vascular: No chest pain, No palpitations, No PND, No orthopnea, No edema Pulmonary: No SOB, No cough, No sputum, No wheezing GI: No nausea, No vomiting, No diarrhea, No pain, No melena, No hematochezia, No constipation, No hematemesis G/U: No dysuria, No frequency, No hematuria, No nacturia Equipment Associate: No vaginal discharge, No abnormal vaginal bleed, No contraction Musculoskeletal: No bone or joint pain, No back pain, No muscle pain Endocrine: No polyuria, No polydipsia Psychiatric: No prior psych history, No depression, No anxiety, No suicidal ideation, No homicidal ideation, No auditory hallucination, No visual hallucination Hematopoietic: No bruising, No lymphadenopathy Allergic/Immuno: No urticaria, No angioedema Neurological: No syncope, No focal symptoms, No weakness, No paresthesia, No headache, Seizure, No dizziness, Confusion, No vertigo ED Past Medical History - Past Medical History Obtainable: Yes Past Medical History: HTN, Asthma/COPD, PUD/GERD, Seizures Family History: HTN Social History: Non Smoker, No Alcohol, No Drug Use, Single, Care Facility Surgical History: PEG/GTube Psychiatricy History: None Medication: Reviewed Family Medical History - Family Member Mother History Unknown: Yes Ethnicity: Unknown Living Status: Unknown Hx Family Cancer: No ED Physical Exam - Physical Examination General/Constitutional: Awake, Well-developed, well-nourished, Alert, No distress, GCS 15, Non-toxic appearing, Ambulatory Head: Atraumatic Eyes: Lids, conjuctiva normal, PERRL, EOMI Skin: Nl inspection, No rash, No skin lesions, No ecchymosis, Well hydrated, No lymphadenopathy ENMT: External ears, nose nl, TM canals nl, Nasal exam nl, Lips, teeth, gums nl , Oropharynx nl, Tonsils nl Neck: Nontender, Full ROM w/o pain, No JVD, No nuchal rigidity, No bruit, No mass, No stridor Respiratory: Nl effort/Exclusion, Clear to Auscultation, No Wheeze/Rhonchi/Rales Cardio Vascular: RRR, No murmur, gallop, rubs, NL S1 S2, Carotid/Femoral/Distal pulses equal bilaterally GI: No tenderness/rebounding/guarding, No organomegaly, No hernia, Normal BS's, Nondistended, No mass/bruits, No McBurney tenderness Other GI comments:: + G-Tube Dysfunction : No CVA tenderness Extremities: No tenderness or effusion, Full ROM, normal strength in all extremities, No edema, Normal digits & nails Neuro/Psych: Alert/oriented, DTR's symmetric, Normal sensory exam, Normal motor strength, Judgement/insight normal, Mood normal, Normal gait, No focal deficits Misc: Normal back, No paraspinal tenderness ED Labs/Radiology/EKG Results - Lab Results Results: Laboratory Tests 02/24/19 02/24/19 02/24/19 11:45 11:45 11:45 WBC 3.2 L RBC 4.61 Hgb 14.0 Hct 41.5 MCV 89.9 MCH 30.4 MCHC Differential 33.8 RDW 11.6 Plt Count 166 MPV 7.8 Neutrophils % 49.1 Lymphocytes % 43.3 Monocytes % 4.6 Eosinophils % 2.2 Basophils % 0.8 PT 11.2 INR 1.08 PTT (Actin FS) 35.7 Sodium 135 L Potassium 3.8 Chloride 103 Carbon Dioxide 25.8 Anion Gap 10.0 BUN 9 Creatinine 0.5 L Est GFR ( Amer) > 60.0 Est GFR (Non-Af Amer) > 60.0 BUN/Creatinine Ratio 18.0 Glucose 116 H Whole Bld Lactic Acid Calcium 9.5 Total Bilirubin 0.4 AST 31 ALT 27 Alkaline Phosphatase 131 H Creatine Kinase 60 Troponin I Total Protein 6.9 Albumin 3.8 Globulin 3.1 Albumin/Globulin Ratio 1.2 Amylase 36 Lipase 35 Serum , Qual 02/24/19 02/24/19 11:45 11:45 WBC RBC Hgb Hct MCV MCH MCHC Differential RDW Plt Count MPV Neutrophils % Lymphocytes % Monocytes % Eosinophils % Basophils % PT INR PTT (Actin FS) Sodium Potassium Chloride Carbon Dioxide Anion Gap BUN Creatinine Est GFR ( Amer) Est GFR (Non-Af Amer) BUN/Creatinine Ratio Glucose Whole Bld Lactic Acid 0.62 Calcium Total Bilirubin AST ALT Alkaline Phosphatase Creatine Kinase Troponin I 0.01 Total Protein Albumin Globulin Albumin/Globulin Ratio Amylase Lipase Serum , Qual NEGATIVE Comments:: Reviewed - Radiology Results Comments:: Reviewed - EKG Interpretations Comments:: Reviewed ED Septic Shock - . Is Septic Shock (SBP<90, OR Lactate>4 mmol\L) present?: No - <6hrs of presentation: Vital Signs: Vital Signs - 8 hr 02/24/19 11:15 Temp 97.7 F HR 61 RR 17 BP 104/54 O2 Sat % 99 ED Reassessment (Disposition) - Reassessment Reassessment Condition:: Improved - Diagnosis Diagnosis:: G-Tube Dysfunction - Aftercare/Follow up Instructions Aftercare/Follow-Up Instructions:: Counseled pt regarding lab results/diagnosis & need follow up, Counseled pt & family regarding lab results/diagnosis & need follow up - Patient Disposition Discharge/Transfer:: Acute Care w/in this hosp Accepting Physician:: Dr. Paredes Time Called:: 1300 Time Responded:: 13:00 Admitted to:: Med/Surg Spoke to:: Dr. Paredes Admitting Medical Physician:: Dr. Paredes Condition at Disposition:: Stable, Improved
--- NOTE | 2019-02-24 14:38 | History & Physical ---
ADMIT DATE: 02/24/2019 INTERNAL MEDICINE HISTORY AND PHYSICAL CHIEF COMPLAINT: G-tube bumper in the wrong place. HISTORY OF PRESENT ILLNESS: This is a 48-year-old female with history of seropositive Sjogren syndrome, seizure, DJD, admitted from nursing facility secondary to the bumper on the G-tube, stuck between the liver and the stomach and the skin, but this got removal and replacement. According to nursing staff, unable to provide nutrition and medication. Currently, the patient was evaluated in the ER and admitted for further management. PAST MEDICAL HISTORY: As mentioned in history of present illness. PAST SURGICAL HISTORY: G-tube. ALLERGIES: No known drug allergies. MEDICATIONS: Tylenol, albuterol, Keppra, Colace, magnesium, and risperidone. FAMILY HISTORY: Noncontributory. SOCIAL HISTORY: The patient is a intermediate patient, requiring 24-hour total care. REVIEW OF SYSTEMS: This is limited secondary to pain, comatose. We will try to obtain more detailed review of systems at a later date by talking to family members, we had a talk with her sister at [phone]. We will also try to get information from nursing staff at [facility] [phone] as well as the supportive employment case manager from [facility]. PHYSICAL EXAMINATION: VITAL SIGNS: Blood pressure 104/54, respirations 17, pulse 61, and temperature 97.7. GENERAL: Elderly female, appears chronically ill. NECK: Supple. No mass. LUNGS: Equal breath sounds, few rhonchi. HEART: Regular rate and rhythm without appreciable murmur. ABDOMEN: Soft, globular. Positive G-tube, malfunction in place. EXTREMITIES: Positive excoriation contractures. NEUROLOGIC: Limited. LABORATORY DATA: As detailed laboratory chart, WBC 3, hemoglobin 14, platelets 166. INR 1.8. Sodium 135, potassium 3.8, BUN 9, creatinine 0.5, blood sugar 116, alkaline phosphatase 131. Serum was negative. ____ were negative. ASSESSMENT AND PLAN: Malfunctioning G-tube bumper between the skin, leukopenia, seropositive Sjogren syndrome, hyponatremia, seizure, degenerative joint disease, generalized contractures. We will refer the patient to ____. Continue IV hydration. We will recheck the patient's chest x-ray. We will continue to follow. [facility]# [id number]
[2019-02-24] MEDS: D5-0.9%NS 1,000 ML IV SCH (17:18)
[2019-02-24] MEDS: Levetiracetam 500 mg/5mL 5mL UDSyr *for ORAL USE ONLY GT SCH (17:19)
[2019-02-25] MEDS: D5-0.9%NS 1,000 ML IV SCH ×2 (06:12→15:55)
[2019-02-25] MEDS: Multivitamin w/ Minerals Tab GT SCH (08:09)
[2019-02-25] MEDS: Levetiracetam 500 mg/5mL 5mL UDSyr *for ORAL USE ONLY GT SCH ×2 (08:09→16:06)
--- NOTE | 2019-02-25 12:24 | Internal Medicine Prog Note ---
Internal Medicine Subjective - Subjective Patient seen and examined:: with staff, chart reviewed Patient is:: asleep, non-verbal, non-interactive, in bed, confused Patient Complaints of:: congestion Per staff patient has:: no adverse event, no episodes of fall Internal Medicine Objective - Results Result Diagrams: 02/24/19 11:45 02/24/19 11:45 Recent Labs: Laboratory Last Values WBC 3.2 Th/cmm (4.8-10.8) L 02/24/19 11:45 RBC 4.61 Mil/cmm (3.80-5.10) 02/24/19 11:45 Hgb 14.0 gm/dL (12-16) 02/24/19 11:45 Hct 41.5 % (41.0-60) 02/24/19 11:45 MCV 89.9 fl (81-100) 02/24/19 11:45 MCH 30.4 pg (27.0-31.0) 02/24/19 11:45 MCHC Differential 33.8 pg (28.0-36.0) 02/24/19 11:45 RDW 11.6 % (11.5-20.0) 02/24/19 11:45 Plt Count 166 Th/cmm (150-400) 02/24/19 11:45 MPV 7.8 fl 02/24/19 11:45 Neutrophils % 49.1 % (40.0-80.0) 02/24/19 11:45 Lymphocytes % 43.3 % (20.0-50.0) 02/24/19 11:45 Monocytes % 4.6 % (2.0-10.0) 02/24/19 11:45 Eosinophils % 2.2 % (0.0-5.0) 02/24/19 11:45 Basophils % 0.8 % (0.0-2.0) 02/24/19 11:45 PT 11.2 SECONDS (9.5-11.5) 02/24/19 11:45 INR 1.08 (0.5-1.4) 02/24/19 11:45 PTT (Actin FS) 35.7 SECONDS (26.0-38.0) 02/24/19 11:45 Sodium 135 mEq/L (136-145) L 02/24/19 11:45 Potassium 3.8 mEq/L (3.5-5.1) 02/24/19 11:45 Chloride 103 mEq/L (98-107) 02/24/19 11:45 Carbon Dioxide 25.8 mEq/L (21.0-31.0) 02/24/19 11:45 Anion Gap 10.0 (7.0-16.0) 02/24/19 11:45 BUN 9 mg/dL (7-25) 02/24/19 11:45 Creatinine 0.5 mg/dL (0.6-1.2) L 02/24/19 11:45 Est GFR ( Amer) > 60.0 ml/min (>90) 02/24/19 11:45 Est GFR (Non-Af Amer) > 60.0 ml/min 02/24/19 11:45 BUN/Creatinine Ratio 18.0 02/24/19 11:45 Glucose 116 mg/dL (70-105) H 02/24/19 11:45 Whole Bld Lactic Acid 0.62 mmol/L (0.60-1.99) 02/24/19 11:45 Calcium 9.5 mg/dL (8.6-10.3) 02/24/19 11:45 Total Bilirubin 0.4 mg/dL (0.3-1.0) 02/24/19 11:45 AST 31 U/L (13-39) 02/24/19 11:45 ALT 27 U/L (7-52) 02/24/19 11:45 Alkaline Phosphatase 131 U/L (34-104) H 02/24/19 11:45 Creatine Kinase 60 U/L (30-223) 02/24/19 11:45 Troponin I 0.01 ng/mL (0.01-0.05) 02/24/19 11:45 Total Protein 6.9 gm/dL (6.0-8.3) 02/24/19 11:45 Albumin 3.8 gm/dL (3.7-5.3) 02/24/19 11:45 Globulin 3.1 gm/dL 02/24/19 11:45 Albumin/Globulin Ratio 1.2 (1.0-1.8) 02/24/19 11:45 Amylase 36 U/L (29-103) 02/24/19 11:45 Lipase 35 U/L (11-82) 02/24/19 11:45 Serum , Qual NEGATIVE (NEGATIVE) 02/24/19 11:45 - Physical Exam Vitals and I&O: Vital Signs Temp 98.6 F 02/25/19 12:00 Pulse 58 02/25/19 12:00 Resp 18 02/25/19 12:00 BP 96/51 02/25/19 12:00 Pulse Ox 98 02/25/19 12:00 Intake & Output 02/24/19 02/25/19 02/25/19 18:59 06:59 18:59 Intake Total 1000 Output Total 1 Balance 999 Weight (lbs) 61.235 kg 61.235 kg Intake: Intake, IV Amount 1000 D5-0.9%Ns 1,000 ml @ 80 1000 mls/hr IV .[id number] [facility] Rx #:[id number] Output: Stool 1 Other: # Voids 1 2 Weight Source Bedscale Bedscale Active Medications: Current Medications Acetaminophen (Tylenol 650mg/20.3ml Suspension) 640 mg PO Q6H PRN PRN Reason: ARTHRITIS PAIN Stop: 04/25/19 12:40 Acetaminophen (Tylenol 650mg/20.3ml Suspension) 650 mg GT Q4H PRN PRN Reason: MILD PAIN OR TEMP >100 Stop: 04/25/19 12:40 Albuterol Sulfate (Albuterol 2.5mg/3ml Neb Ud) 2.5 mg HHN Q2HRT PRN PRN Reason: Shortness of Breath or Wheeze Stop: 04/25/19 12:41 Bisacodyl (Dulcolax 10 Mg Supp) 10 mg RC Q72H PRN PRN Reason: IF MOM INEFFECTIVE Stop: 04/25/19 12:40 Calamine/Phenol (Calmoseptine) 1 appl TP PRN PRN PRN Reason: INCONTINENCE EPISODE Dextrose/Sodium Chloride (D5-0.9%Ns) 1,000 mls @ 80 mls/hr IV .[id number] [facility] Stop: 04/25/19 12:44 Last Admin: 02/25/19 06:12 Dose: 80 mls/hr Ipratropium [place] (Atrovent Neb 0.5mg/2.5ml) 0.5 mg IH Q2HRT PRN PRN Reason: Shortness of Breath or Wheeze Stop: 04/25/19 12:41 Levetiracetam (Keppra) 750 mg GT BID [facility] Stop: 04/25/19 16:59 Last Admin: 02/25/19 08:09 Dose: 750 mg Loperamide HCl (Imodium Oral Soln) 6 mg PO PRN PRN PRN Reason: Loose Stools Stop: 04/25/19 12:40 Lorazepam (Ativan) 1 mg IV Q4H PRN; Protocol PRN Reason: Seizure Stop: 04/25/19 12:41 Magnesium Hydroxide (Milk Of Magnesia) 30 ml PO Q72H PRN PRN Reason: Constipation Stop: 04/25/19 12:40 Ondansetron HCl (Zofran) 4 mg IV Q8H PRN PRN Reason: Nausea / Vomiting Stop: 04/25/19 12:41 Risperidone (Risperdal) 0.5 mg GT HS [facility]; Protocol Stop: 04/25/19 20:59 Vitamin D (Vitamin D) 800 iu GT DAILY [facility] Stop: 04/26/19 08:59 Last Admin: 02/25/19 08:09 Dose: 800 iu General: demented HEENT: NC/AT, PERRLA, EOMI Neck: Supple, No JVD Lungs: CTAB Cardiovascular: RRR, Normal S1, Normal S2 Abdomen: soft, non-distended, +GT, positive bowel sound Extremities: excoriation Neurological: no change - Procedures Procedures: Procedures Procedure Code Date CHANGE FEEDING DEVICE IN UP INTEST TRACT, BOOKMOBILE DRIVER APPROACH [id number] 07/23/18 CHANGE GASTROSTOMY TUBE 29551 12/30/11 CLOSED ENDOSCOPIC BIOPSY OF LARGE INTESTINE 45.25 11/30/11 COLONOSCOPY AND BIOPSY 54558 11/30/11 EGD BIOPSY SINGLE/MULTIPLE 35525 11/30/[address] GASTROSTOMY TUBE 53395 09/26/11 EMERGENCY DEPT VISIT 99264 09/26/11 ESOPHAGOGASTRODUODENOSCOPY [EGD] W/CLOSED BIOPSY 45.16 11/30/11 HEMODIALYSIS 39.95 11/30/11 IMMUNIZATION ADMIN 66198 10/01/12 INCISION OF BREAST LESION 39119 09/23/10 INJECT/INFUSE NEC 99.29 11/14/12 INSERT INDWELLING CATH 57.94 10/01/12 INSERT NON-TUNNEL CV CATH 69232 11/30/11 INSERT TEMP BLADDER CATH 60015 10/01/12 MASTOTOMY 85.0 09/23/10 PERCUTANEOUS [ENDOSCOPIC] GASTROSTOMY [PEG] 43.11 09/26/11 REPLACE G/C TUBE PERC 92422 11/30/11 REPLACE GASTROSTOMY TUBE 97.02 12/30/11 VACCINATION NEC 99.55 10/01/12 VACCINE TOXOID 51755 10/01/12 VENOUS CATHETERIZATION FOR RENAL DIALYSIS 38.95 11/30/11 Internal Medicine Assmt/Plan - Assessment Assessment: ASSESSMENT AND PLAN: Malfunctioning G-tube, bumper between the skin and tissue , leukopenia, seropositive Sjogren syndrome, hyponatremia, seizure, degenerative joint disease, generalized contractures. - Plan Plan: PLAN: We will refer the patient to __gi, dr reyna for gt replacement__. Continue IV hydration. We will recheck the patient's chest x-ray. We will continue to follow.
[2019-02-25] MEDS ORDERED: Diatrizoate Meglumine/Diatri 30 mL Sol PO ONE (16:27)
--- NOTE | 2019-02-25 18:00 | Consultation ---
DATE OF CONSULTATION: 02/25/2019 REQUESTING PHYSICIAN: Dr. Paredes. REASON FOR CONSULTATION: Concern for G-tube dislodgement. HISTORY OF PRESENT ILLNESS: This is a 48-year-old female with history of possible Sjogren syndrome, seizure, degenerative joint disorder as well as G-tube dependent and macroglossia. Apparently G-tube appeared to be out of position per nursing staff at the intermediate and concern that maybe this was old and that this was nonfunctioning. We do not have any specific evidence of how this was nonfunctioning or where exactly this was dislodged. She has been admitted for further workup and management. PAST MEDICAL HISTORY: As above. MEDICATIONS: Have been reviewed. FAMILY HISTORY: Noncontributory for GI disease. SOCIAL HISTORY: She is a intermediate resident. REVIEW OF SYSTEMS: Unable to obtain given the patient's current state. PHYSICAL EXAMINATION: VITAL SIGNS: Blood pressure 104/54, respiratory rate of 18, pulse 61 Temperature 97.7. GENERAL: In no acute distress. HEENT: Normocephalic, atraumatic. PERRLA positive. LUNGS: Clear bilaterally. No wheezes, rales or rhonchi. HEART: Regular rate and rhythm, normal S1, S2. ABDOMEN: Soft, nontender. Positive for G-tube, which appears to be intact. Unable to manipulate this. This may have been surgically placed versus tight bumper placement. EXTREMITIES: Show no lower extremity edema. LABORATORY DATA: Hemoglobin of 14, platelet count of 166,000. ASSESSMENT AND PLAN: This is a 48-year-old female who presents with concern for malfunctioning G-tube. 1. Concern for malfunctioning G-tube. 2. History of oropharyngeal dysphagia. 3. History of Sjogren's syndrome and macroglossia. We would recommend getting a KUB with Gastrografin to check if the G-tube is in appropriate position. If so, then okay to resume tube feeds and medications. If not, then we would recommend endoscopic replacement of G-tube into the appropriate location. We will continue to monitor alongside with you. If the patient is having any leaking of the G-tube and needs a replacement, then we will recommend endoscopic placement of G-tube. We will continue to follow alongside with you. Thank you for allowing us to participate in this patient's care. [facility]# [id number]
[2019-02-26 06:04] LABS: % BASOPHILS 0.9 % (0.0-2.0); % EOSINOPHILS 0.7 % (0.0-5.0); % LYMPHOCYTES 37.1 % (20.0-50.0); % MONOCYTES 3.2 % (2.0-10.0); % NEUTROPHILS 58.1 % (40.0-80.0); HEMATOCRIT 38.9 % (41.0-60); HEMOGLOBIN 13.5 gm/dL (12-16); LYMPHOCYTE ABSOLUTE 1.6 Th/cmm (1.5-3.0); MEAN CELL VOLUME 89.4 fl (81-100); MEAN CORPUSCULAR HGB CONC 34.7 pg (28.0-36.0); MONOCYTE ABSOLUTE 0.1 Th/cmm (0.3-1.0); NEUTROPHILE ABSOLUTE 2.6 Th/cmm (1.8-8.0); PLATELET COUNT 169 Th/cmm (150-400); RED BLOOD COUNT 4.35 Mil/cmm (3.80-5.10); RED CELL DISTRIBUTION WIDTH 11.6 % (11.5-20.0); WHITE BLOOD COUNT 4.3 Th/cmm (4.8-10.8)
[2019-02-26] MEDS: D5-0.9%NS 1,000 ML IV SCH (06:58)
--- NOTE | 2019-02-26 08:09 | GI Progress Note ---
Subjective - Review of Systems Service Date: 02/26/19 Events since last encounter: No reported problems with G tube; is within stomach from KUB last night GI OBJECTIVE - Results Result Diagrams: 02/26/19 05:50 02/24/19 11:45 Recent Labs: Laboratory Last Values WBC 4.3 Th/cmm (4.8-10.8) L 02/26/19 05:50 RBC 4.35 Mil/cmm (3.80-5.10) 02/26/19 05:50 Hgb 13.5 gm/dL (12-16) 02/26/19 05:50 Hct 38.9 % (41.0-60) L 02/26/19 05:50 MCV 89.4 fl (81-100) 02/26/19 05:50 MCH 31.0 pg (27.0-31.0) 02/26/19 05:50 MCHC Differential 34.7 pg (28.0-36.0) 02/26/19 05:50 RDW 11.6 % (11.5-20.0) 02/26/19 05:50 Plt Count 169 Th/cmm (150-400) 02/26/19 05:50 MPV 7.7 fl 02/26/19 05:50 Neutrophils % 58.1 % (40.0-80.0) 02/26/19 05:50 Lymphocytes % 37.1 % (20.0-50.0) 02/26/19 05:50 Monocytes % 3.2 % (2.0-10.0) 02/26/19 05:50 Eosinophils % 0.7 % (0.0-5.0) 02/26/19 05:50 Basophils % 0.9 % (0.0-2.0) 02/26/19 05:50 PT 11.2 SECONDS (9.5-11.5) 02/24/19 11:45 INR 1.08 (0.5-1.4) 02/24/19 11:45 PTT (Actin FS) 35.7 SECONDS (26.0-38.0) 02/24/19 11:45 Sodium 135 mEq/L (136-145) L 02/24/19 11:45 Potassium 3.8 mEq/L (3.5-5.1) 02/24/19 11:45 Chloride 103 mEq/L (98-107) 02/24/19 11:45 Carbon Dioxide 25.8 mEq/L (21.0-31.0) 02/24/19 11:45 Anion Gap 10.0 (7.0-16.0) 02/24/19 11:45 BUN 9 mg/dL (7-25) 02/24/19 11:45 Creatinine 0.5 mg/dL (0.6-1.2) L 02/24/19 11:45 Est GFR ( Amer) > 60.0 ml/min (>90) 02/24/19 11:45 Est GFR (Non-Af Amer) > 60.0 ml/min 02/24/19 11:45 BUN/Creatinine Ratio 18.0 02/24/19 11:45 Glucose 116 mg/dL (70-105) H 02/24/19 11:45 Whole Bld Lactic Acid 0.62 mmol/L (0.60-1.99) 02/24/19 11:45 Calcium 9.5 mg/dL (8.6-10.3) 02/24/19 11:45 Total Bilirubin 0.4 mg/dL (0.3-1.0) 02/24/19 11:45 AST 31 U/L (13-39) 02/24/19 11:45 ALT 27 U/L (7-52) 02/24/19 11:45 Alkaline Phosphatase 131 U/L (34-104) H 02/24/19 11:45 Creatine Kinase 60 U/L (30-223) 02/24/19 11:45 Troponin I 0.01 ng/mL (0.01-0.05) 02/24/19 11:45 Total Protein 6.9 gm/dL (6.0-8.3) 02/24/19 11:45 Albumin 3.8 gm/dL (3.7-5.3) 02/24/19 11:45 Globulin 3.1 gm/dL 02/24/19 11:45 Albumin/Globulin Ratio 1.2 (1.0-1.8) 02/24/19 11:45 Amylase 36 U/L (29-103) 02/24/19 11:45 Lipase 35 U/L (11-82) 02/24/19 11:45 TSH 1.57 uIU/ml (0.34-5.60) 02/26/19 05:50 Serum , Qual NEGATIVE (NEGATIVE) 02/24/19 11:45 - Physical Exam Vitals and I&O: Vital Signs Temp 97.4 F 02/26/19 04:00 Pulse 90 02/26/19 04:00 Resp 18 02/26/19 04:00 BP 142/75 02/26/19 04:00 Pulse Ox 98 02/26/19 04:00 Intake & Output 02/25/19 02/26/19 02/26/19 18:59 06:59 18:59 Intake Total 480.929 0780 Balance 877.803 8235 Weight (lbs) 61.235 kg 61.235 kg Intake: Intake, IV Amount 236.854 0961 D5-0.9%Ns 1,000 ml @ 80 076.700 1843 mls/hr IV .[id number] [facility] Rx #:[id number] Other: # Voids 2 3 # Bowel Movements 0 1 Weight Source Bedscale Bedscale Active Medications: Current Medications Acetaminophen (Tylenol 650mg/20.3ml Suspension) 640 mg PO Q6H PRN PRN Reason: ARTHRITIS PAIN Stop: 04/25/19 12:40 Acetaminophen (Tylenol 650mg/20.3ml Suspension) 650 mg GT Q4H PRN PRN Reason: MILD PAIN OR TEMP >100 Stop: 04/25/19 12:40 Last Admin: 02/25/19 22:28 Dose: 650 mg Albuterol Sulfate (Albuterol 2.5mg/3ml Neb Ud) 2.5 mg HHN Q2HRT PRN PRN Reason: Shortness of Breath or Wheeze Stop: 04/25/19 12:41 Bisacodyl (Dulcolax 10 Mg Supp) 10 mg RC Q72H PRN PRN Reason: IF MOM INEFFECTIVE Stop: 04/25/19 12:40 Calamine/Phenol (Calmoseptine) 1 appl TP PRN PRN PRN Reason: INCONTINENCE EPISODE Dextrose/Sodium Chloride (D5-0.9%Ns) 1,000 mls @ 80 mls/hr IV .[id number] MARGA Stop: 04/25/19 12:44 Last Admin: 02/26/19 06:58 Dose: 80 mls/hr Ipratropium Sapphire (Atrovent Neb 0.5mg/2.5ml) 0.5 mg IH Q2HRT PRN PRN Reason: Shortness of Breath or Wheeze Stop: 04/25/19 12:41 Levetiracetam (Keppra) 750 mg GT BID MARGA Stop: 04/25/19 16:59 Last Admin: 02/25/19 16:06 Dose: 750 mg Loperamide HCl (Imodium Oral Soln) 6 mg PO PRN PRN PRN Reason: Loose Stools Stop: 04/25/19 12:40 Lorazepam (Ativan) 1 mg IV Q4H PRN; Protocol PRN Reason: Seizure Stop: 04/25/19 12:41 Magnesium Hydroxide (Milk Of Magnesia) 30 ml PO Q72H PRN PRN Reason: Constipation Stop: 04/25/19 12:40 Ondansetron HCl (Zofran) 4 mg IV Q8H PRN PRN Reason: Nausea / Vomiting Stop: 04/25/19 12:41 Risperidone (Risperdal) 0.5 mg GT HS MARGA; Protocol Stop: 04/25/19 20:59 Vitamin D (Vitamin D) 800 iu GT DAILY MARGA Stop: 04/26/19 08:59 Last Admin: 02/25/19 08:09 Dose: 800 iu General: Cooperative HEENT: Atraumatic, PERRLA, EOMI Neck: Supple, JVD, Thyromegaly Cardiovascular: Normal S1, Normal S2 Abdomen: Bowel sounds - Procedures Procedures: Procedures Procedure Code Date CHANGE FEEDING DEVICE IN UP INTEST TRACT, INSPECTION ENGINEER APPROACH [id number] 07/23/18 CHANGE GASTROSTOMY TUBE 48124 12/30/11 CLOSED ENDOSCOPIC BIOPSY OF LARGE INTESTINE 45.25 11/30/11 COLONOSCOPY AND BIOPSY 27366 11/30/11 EGD BIOPSY SINGLE/MULTIPLE 03288 11/30/[address] GASTROSTOMY TUBE 49276 09/26/11 EMERGENCY DEPT VISIT 04154 09/26/11 ESOPHAGOGASTRODUODENOSCOPY [EGD] W/CLOSED BIOPSY 45.16 11/30/11 HEMODIALYSIS 39.95 11/30/11 IMMUNIZATION ADMIN 18845 10/01/12 INCISION OF BREAST LESION 94442 09/23/10 INJECT/INFUSE NEC 99.29 11/14/12 INSERT INDWELLING CATH 57.94 10/01/12 INSERT NON-TUNNEL CV CATH 33050 11/30/11 INSERT TEMP BLADDER CATH 08928 10/01/12 MASTOTOMY 85.0 09/23/10 PERCUTANEOUS [ENDOSCOPIC] GASTROSTOMY [PEG] 43.11 09/26/11 REPLACE G/C TUBE PERC 36024 11/30/11 REPLACE GASTROSTOMY TUBE 97.02 12/30/11 VACCINATION NEC 99.55 10/01/12 VACCINE TOXOID 58673 10/01/12 VENOUS CATHETERIZATION FOR RENAL DIALYSIS 38.95 11/30/11 Assessment/Plan - Problem List Patient Problems: All Active Problems GASTRIC FEEDING TUBE MALFUNCTION (Acute) - Assessment Assessment: 1. Malfunctioning G tube 2. Oropharyngeal dysphagia 3. Hx of Sjogrens -continue with G tube feedings -If any leakage of G tube, will recommend Endoscopic assistance and replacement of G tube
[2019-02-26] MEDS: Multivitamin w/ Minerals Tab GT SCH (08:18)
[2019-02-26] MEDS: Levetiracetam 500 mg/5mL 5mL UDSyr *for ORAL USE ONLY GT SCH (08:19)
[2019-02-26 08:43] LABS: ANION GAP 14.2 (7.0-16.0); BUN - UREA NITROGEN 9 mg/dL (7-25); CALCIUM SERUM 9.3 mg/dL (8.6-10.3); CARBON DIOXIDE 21.3 mEq/L (21.0-31.0); CHLORIDE 114 mEq/L (98-107); CREATININE - SERUM 0.5 mg/dL (0.6-1.2); GFR AFRICAN-AMERICAN > 60.0 ml/min (>90); GFR NON AFRICAN-AMERICAN > 60.0 ml/min; GLUCOSE 100 mg/dL (70-105); MAGNESIUM 2.1 mg/dL (1.9-2.7); POTASSIUM SERUM 3.5 mEq/L (3.5-5.1); SODIUM SERUM 146 mEq/L (136-145)
--- NOTE | 2019-02-26 08:51 | Diagnostic Imaging Report ---
Exam: Gastrostomy tube placement FINDINGS: Upon injection of contrast material and gas into the gastrostomy tube there is normal opacification of the stomach. IMPRESSION gastrostomy tube in the stomach.
--- NOTE | 2019-02-26 13:23 | Discharge Summary ---
DATE OF DISCHARGE: 02/26/2019 CHIEF COMPLAINT: Malfunctioning G-tube. FINAL DIAGNOSES: Malfunctioning G-tube, which was corrected, apparently, the G-tube bumper between the skin, leukopenia, electrolyte abnormalities, seizure, generalized contracture, Rett syndrome. 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 The patient admitted for further management. PHYSICAL EXAMINATION: VITAL SIGNS: Blood pressure 115/60, respirations 20, pulse 83, temperature 97.5. GENERAL: Middle-aged female, appears chronically ill. NECK: Supple. No mass. LUNGS: Equal breath sounds, few rhonchi. HEART: Regular rate and rhythm without appreciable murmur. ABDOMEN: Soft, globular. EXTREMITIES: Positive G-tube contracture atrophy. NEUROLOGIC: Limited. HOSPITAL COURSE: She was admitted to the medical floor, continue IV hydration. Medications were adjusted. The patient was referred to Dr. Anderson for GI and corrected the issue. The patient tolerating G-tube and cleared for discharge. CONDITION ON DISCHARGE: Fair. DISCHARGE INSTRUCTIONS: The patient to continue current management. We will transfer the patient back to [facility]. JOB# [id number]
== END 2019-02-26 15:10 | DRG 252 ==
LOC: ER 11:03 → MSI 12:14
PROVIDERS: ADMIT Internal Medicine; ATTEND Internal Medicine
DX: K94.23 Gastrostomy malfunction (principal); F84.2 Rett's syndrome; R53.2 Functional quadriplegia; E87.1 Hypo-osmolality and hyponatremia; M35.00 Sjogren syndrome, unspecified; R13.12 Dysphagia, oropharyngeal phase; G40.909 Epilepsy, unspecified, not intractable, without status epilepticus; D72.819 Decreased white blood cell count, unspecified; M19.90 Unspecified osteoarthritis, unspecified site; Y83.8 Other surgical procedures as the cause of abnormal reaction of the patient, or of later complication, without mention of misadventure at the time of the procedure; Y82.8 Other medical devices associated with adverse incidents; Z79.899 Other long term (current) drug therapy; Y92.89 Other specified places as the place of occurrence of the external cause
CPT/HCPCS: 36415-UA; 80048-TC; 80053-TC; 82150-TC; 82550-TC; 83605; 83690-TC; 83735-TC; 84443-TC; 84484-TC; 84703-TC; 85025-TC; 85610-TC; 85730-TC; 93005; 94760; J7030; J7042; X7704; Z7610